=== PATIENT | female | born 2000 | race Caucasian/White ===

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

== ENCOUNTER → 2023-02-07 16:10 | Outpatient (CLI) | payer OTHER, SELFPAY ==
[2023-02-07 16:27] LABS: Appearance Urine UA CLEAR; Bilirubin Urine UA NEGATIVE (NEGATIVE); Color Urine UA YELLOW; Glucose Urine UA NEGATIVE (Negative); Ketones Urine UA NEGATIVE (NEGATIVE); Leukocyte Esterase Urine UA TRACE (NEGATIVE); Nitrite Urine UA NEGATIVE (Negative); Occult Blood Urine UA NEGATIVE (Negative); Protein Urine UA NEGATIVE (Negative); Urobilinogen Urine UA 0.2 E.U./dL (0.2)
[2023-02-07 16:41] LABS: pH Urine UA 6.5 (4.5-8.0)
[2023-02-07 16:44] LABS: Bacteria Urine Few (2-10); Culture Indicated Urine Specimen Cultured; RBC Urine 0-1/HPF (0-5/HPF); Squamous Epithelial Cell Urine 1-5 /HPF (0-5/HPF); WBC Urine 1-5/HPF (0-5/HPF)
[2023-02-07 17:55] LABS: Urine N gonorrhoeae NOT DETECTED
[2023-02-07 18:07] LABS: Urine Chlamydia NOT DETECTED
== END ==
PROVIDERS: PCP Family Medicine; Referring Provider Family Medicine; Visit Provider Family Medicine
DX: N39.0 Urinary tract infection, site not specified (principal); Z11.3 Encounter for screening for infections with a predominantly sexual mode of transmission
CPT/HCPCS: 81001; 87086; 87491; 87591

== ENCOUNTER 2023-08-10 09:09 | Emergency (ER) | payer OTHER, SELFPAY ==
[2023-08-10 09:12] VITALS: BP 116/70; PULSE 74; RESP 14; TEMP 36.4; O2SAT 100; BMI 21.0
--- NOTE | 2023-08-10 09:16 | PC.NURSE ---
Pt was donating plasma yesterday,she was moving her arm while donating and is concerned because she is having left arm pain now. Increases with any movement.
--- NOTE | 2023-08-10 09:31 | ED_ITS ---
HPI - Extremity Problem General Chief complaint: Extremity Injury, Upper Stated complaint: went to donate plasma was bending arm with needle Time Seen by Provider: 08/10/23 09:22 Source: patient Mode of arrival: Ambulatory History of Present Illness HPI Narrative: Patient complains of left upper arm pain. Patient donated plasma yesterday. Since then has had pain at the IV access site as well as upper arm pain. No history DVT or SVT. No shortness of breath. No fever chills. Related Data Home Medications Medication Instructions Recorded Confirmed No Known Home Medications 08/10/20 04/10/23 Allergies Allergy/AdvReac Type Severity Reaction Status Date / Time lactose AdvReac Mild Constipatio Verified 08/10/23 09:12 n Review of Systems Review of Systems Narrative: GENERAL: negative chills, fatigue, malaise, fever, sweats. HEENT: negative sinus pain, ear pain, sore throat RESPIRATORY: negative dyspnea, cough CARDIOVASCULAR: negative chest pain, palpitations GASTROINTESTINAL: negative nausea, vomiting, abdominal pain : negative dysuria, frequency, hematuria MUSCULOSKELETAL: Positive muscle or bony pain SKIN: negative rash, skin lesions NEUROLOGIC: negative weakness, numbness ROS Unobtainable: All systems reviewed & are unremarkable except as noted in HPI and below Patient History Medical History EDS (Oumar-Danlos syndrome) Social History Smoking Status: Unknown if ever smoked alcohol intake: never substance use type: marijuana (~1g per day for bowel issues ) Smoking Status: Unknown if ever smoked alcohol intake frequency: a few times a month Substance Use Type: marijuana Exam Narrative Exam Narrative: GENERAL: in no distress, not toxic not dyspneic HEAD: Normocephalic. EYES: Pupils equal round NECK: Trachea midline. EXTREMITIES: No gross deformities. IV access site noted on left AC. It is clean and dry intact. No palpable abscess or induration. No palpable cords in the upper extremity. And warm soft montes-pink strong reconditioning associate and radial pulse with light touch intact to fingers and thumb with strong reconditioning associate. Patient able to bend at the elbow. And fully extend. Able to supinate and pronate as well. NEURO: AOx4. SKIN: Warm and dry PSYCH: Not anxious, is cooperative Initial Vital Signs Initial Vital Signs: Vital Signs Temperature 97.6 F 08/10/23 09:12 Pulse Rate 74 08/10/23 09:12 Respiratory Rate 14 08/10/23 09:12 Blood Pressure 116/70 08/10/23 09:12 Pulse Oximetry 100 08/10/23 09:12 Oxygen Delivery Method Room Air 08/10/23 09:12 Course Orders Ordered: ED Orders 08/10/23 09:29 US periph venous up extrem lt Stat Vital Signs Vital signs: Vital Signs - 8 hr 08/10/23 09:12 08/10/23 10:44 08/10/23 10:44 Temperature 97.6 F Pulse Rate 74 73 Respiratory Rate 14 Blood Pressure 116/70 125/64 Pulse Oximetry 100 100 Oxygen Delivery Method Room Air 08/10/23 11:00 08/10/23 11:00 Temperature Pulse Rate 70 Respiratory Rate Blood Pressure 111/69 Pulse Oximetry 99 Oxygen Delivery Method MDM - Extremity (Nontraumatic) Imaging Data US - DVT: Radiologist's Impression: [address] [address] Ultrasound Report Signed Patient: Marlin Bowden MR#: [id number] : 2000 Acct:[id number] Age/Sex: 23 / F Date of Service: 08/10/23 Loc: ED Accession Number: [id number] Procedure: perip venous up extrem lt Ordering Provider: Humberto Wang MD PROCEDURE: PERIP VENOUS UP EXTREM LT INDICATIONS: Left arm pain and swelling TECHNIQUE: Real-time imaging, as well as color and pulse Doppler interrogation, was performed of the upper extremity deep veins from the inferior neck to the antecubital fossa. COMPARISON: None. FINDINGS: The internal jugular vein, visualized portions of the subclavian vein, axillary, and brachial veins are free of intraluminal thrombus. Where physically possible, the veins are normally compressible. Color and pulse Doppler demonstrate normal intraluminal flow, with expected phasicity and pulsatility. Additional scanning of the cephalic and basilic veins of the superficial system demonstrates normal compressibility, without thrombus. IMPRESSION: No findings of upper extremity deep venous thrombosis can be seen. Dictated by: Duran Alejandro M.D. on 08/10/2023 at 9:34 Approved by: Duran Alejandro M.D. on 08/10/2023 at 9:34 MDM Narrative Medical decision making narrative: Patient complains of left upper arm pain. Patient donated plasma yesterday. Since then has had pain at the IV access site as well as upper arm pain. No history DVT or SVT. No shortness of breath. No fever chills. After history and exam ultrasound left upper MDM CC: Left arm pain Complicating co-morbidities: Recent plasma donation yesterday Data collected from: Patient Medical records reviewed: No recent visit for this complaint Differential considered: Includes but not limited to SVT DVT contusion phlebitis Exam documented above, pertinent findings include: No palpable cord however, mild tenderness to the IV access site Lab Test results independently reviewed as above. Pertinent findings: None indicated at this time Imaging studies independently reviewed: Venous ultrasound left upper extremity no DVT Consultations: None indicated Treatments: None indicated this time Re-evaluations: 11:11 a.m.. Review results with patient. Exam is reassuring as well as imaging. No blood work indicated at this time. Exam is reassuring. No signs of infection/cellulitis. Return precautions reviewed with patient. Nontoxic discharge. Reviewed with patient, perhaps injury during IV insertion yesterday could be muscular pain. Discussion: Appropriate for discharge home exam is reassuring. No blurred indicated. No signs of infection. Nontoxic. Imaging is reassuring. Return precautions reviewed. Patient desires discharge home. Diagnosis: Arm pain Discharge Plan Departure Patient Disposition: Home Clinical Impression: Arm pain, left Instructions: DI for Arm Pain Activity Restrictions/Additional Instructions: See family doctor next week for re-evaluation. Your exam today and imaging studies are reassuring. No blood clot seen in your arm. No blood work is indicated at this time. There is no signs of infection. Perhaps during IV insertion yesterday injury may have been muscular trauma. Continue ibuprofen or Tylenol for pain. May use warm packs to the area 20 minutes at a time as needed for pain. Prescriptions: No Action No Known Home Medications Referrals: Chirag Gupta DO [Primary Care Provider] - Stand Alone Forms: Patient Portal/API, Work Release Note
[2023-08-10 10:44] VITALS: BP 125/64; PULSE 73; O2SAT 100
[2023-08-10 11:00] VITALS: BP 111/69; PULSE 70; O2SAT 99
== END 2023-08-10 11:22 | disposition home or self-care (01) ==
PROVIDERS: Emergency Provider Emergency Medicine; PCP Family Medicine
DX: M79.602 Pain in left arm (principal)
CPT/HCPCS: 93971; 99281; 99283

== ENCOUNTER → 2023-09-21 09:01 | Outpatient (CLI) | payer OTHER, SELFPAY ==
--- NOTE | 2023-09-21 09:03 | DI.US.S_ITS ---
PROCEDURE: US PELVIC COMPLETE INDICATIONS: Dysmenorrhea/pelvic pain TECHNIQUE: Real-time scanning was performed of the pelvic organs, with image documentation. Additional endovaginal scanning was necessary due to incomplete visualization of the adnexal and endometrial structures by transabdominal scanning. COMPARISON: None. FINDINGS: Uterus: Uterus is anteverted and normal in size at 7.8 x 5.4 x 3.5 cm. The myometrium is homogeneous. The endometrium measures 14 mm combined thickness. Bicornuate uterus. No fibroids seen. Ovaries: The right ovary measures 2.9 x 2.4 x 1.6 cm, with a calculated ovarian volume of 6 cc. The left ovary measures 4.4 x 3 x 1.9 cm, with a calculated ovarian volume of 13 cc. Left ovarian hemorrhagic cyst measuring 2.2 x 1.9 x 1.4 cm. Less than 12 follicles can be seen in each ovary. Other: No pathologic free abdominal or pelvic fluid. IMPRESSION: 1. Bicornuate uterus. Endometrium measures 14 mm. 2. Small left ovarian hemorrhagic cyst measuring 2.2 cm. We strive to produce accurate, complete, and clear reports of imaging services. To assist us in improving patient care, this report was composed using standard report templates and voice recognition software. Therefore, it may contain abnormal punctuation, insertions and/or omissions. Occasional wrong-word or sound-alike substitutions may occur. Though we review the report and make efforts to correct it, we do recommend that the report be read carefully in proper context to recognize any text inaccuracies. Dictated by: Eduardo Avilez M.D. on 09/21/2023 at 11:19 Approved by: Eduardo Avilez M.D. on 09/21/2023 at 11:24
== END ==
LOC: US 09:02
PROVIDERS: PCP Family Medicine; Referring Provider Obstetrics & Gynecology; Visit Provider Obstetrics & Gynecology
DX: N94.6 Dysmenorrhea, unspecified (principal); Q51.3 Bicornate uterus; N83.202 Unspecified ovarian cyst, left side
CPT/HCPCS: 76830; 76856

== ENCOUNTER → 2023-10-17 09:49 | Outpatient (CLI) | payer OTHER, SELFPAY ==
[2023-10-19 16:38] LABS: Rubella Antibody IgG > 350.0 IU/mL (>15)
== END ==
LOC: LAB 09:50
PROVIDERS: Family Provider Family Medicine; PCP Family Medicine; Referring Provider Family Medicine; Visit Provider Family Medicine
DX: Z13.9 Encounter for screening, unspecified (principal)
CPT/HCPCS: 36415; 86735; 86762; 86765

== ENCOUNTER 2023-11-30 08:15 | Outpatient (RCR) | payer OTHER, SELFPAY ==
--- NOTE | 2023-10-10 09:38 | PT.OIE ---
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) Syncope and collapse (10/10/23) Strain of muscle, fascia and tendon of other parts of biceps, left arm, subsequent encounter (10/10/23) Strain of unspecified muscle, fascia and tendon at shoulder and upper arm level, left arm, subsequent encounter (10/10/23) Past Medical History (Last Reviewed 09/04/23 @ 16:21 by Chirag Gupta DO) EDS (Oumar-Danlos syndrome) Left shoulder strain Syncope Visit Care Team Role Provider Type Chirag Gupta DO Attending Provider Physician Family Provider Primary Care Provider Referring Provider Specialty: [facility] Practice Address: [address] [place] [address], [facility] Email: [email or web address] Physical Therapy Initial Evaluation PT-OP-A Visit Information Start: 10/09/23 16:21 Freq: Status: Active Protocol: Document 10/10/23 08:14 SAK (Rec: 10/10/23 09:37 SAK [id number]) Out-Patient Physical Therapy Visit Information Visit Information Visit Type Initial Evaluation Visit Start Time 08:14 Visit Stop Time 09:01 Visit Number 1 Evaluation Information Evaluation Date 10/10/23 Precautions Precautions Ehler's Danlo PT-OP-B Current Condition Start: 10/09/23 16:21 Freq: Status: Active Protocol: Document 10/10/23 08:14 SAK (Rec: 10/10/23 09:37 SAK [id number]) Current Condition History of Current Condition Onset Date 2 months Current Complaints left UE pain History of Current Condition Onset of pain injury August 09; first time donating plasma. Was pumping her hand during extraction while needle in, patient passed out and reports she was shaking and convulsing, bent her elbow while equipment in her arm, bent arm at least 3x. Had bruising initially, unable to fully extend. 1st month practically unusable. Some improvement but persists. Feels continues to reinjure it . 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 Interrupts sleep. Occasional numbness left hand. Patient is right handed. On feet 8 hrs per day at work, has to lift at least 20 lbs frequently. Otherwise for exercise goes running and hiking; now jogging and walking, fearful of falling and further hurting arm. Bending elbow relieving, extending is stretching pain, tender to touch. Prior Treatments and Tests ultrasound; no clot. Using heat daily and reports hot water feels really good. Future Testing and Treatments Planned Nothing planned further. Potential for being put on light duty. Treatment Goals Patient/Caregiver Goals Decrease pain, regain full active use of her left UE. Prior Functional Status Baseline Function- ADL's Independent Baseline Function- Work/School no limitations Baseline Function- Recreation/Hobbies running, hiking Current Functional Impairments (Reported) Functional Limitations- ADL's painful, uses mostly right UE Functional Limitations- Work/School unable to work Functional Limitations- Recreation/ not running or hiking Hobbies currently Personal Factors Other Personal Factors That May Effect Rangel's Danlo Therapy/Recovery PT-OP-C Subjective Start: 10/09/23 16:21 Freq: Status: Active Protocol: Document 10/10/23 08:14 [facility] (Rec: 10/10/23 09:37 [facility] [id number]) Patient Questionnaires Quick Dash- Upper Extremity Quick Dash UE Score 45 OP-PT Pain Assessment Pain Assessment Grid Paper Pain Assessment Grid Completed Yes Location left UE Pain Location Details see pain chart Intensity 7 Description Aching,Chronic,Pressure, Stabbing,Tender,Tightness Frequency Frequent Pain Alleviating Factors Heat,Inactivity Home Pain Medication Use Pain Medications Used No Pain Behaviors Pain Behaviors Facial Grimacing,Guarding, Wincing PT-OP-F Manual Assessment Start: 10/09/23 16:21 Freq: Status: Active Protocol: Document 10/10/23 08:14 [facility] (Rec: 10/10/23 09:37 [facility] [id number]) Manual Assessments Soft Tissue Assessment Soft Tissue Mobility Assessment Increased soft tissue tension biceps, brachialis, brachioradialis. Joint Mobility Assessment Joint Mobility Assessment hypermobility due to Ehler's PT-OP-H Neuro Start: 10/09/23 16:21 Freq: Status: Active Protocol: Document 10/10/23 08:14 [facility] (Rec: 10/10/23 09:37 [facility] [id number]) Sensation Evaluation Gross Sensation Gross Sensation Left UE Impaired Sensation Description Paresthesia,Numbness PT-OP-J Posture/Palpation/Skin Start: 10/09/23 16:21 Freq: Status: Active Protocol: Document 10/10/23 08:14 SAK (Rec: 10/10/23 09:37 [facility] [id number]) Palpation Assessment Location left UE Palpation Findings Soft Tissue Tightness,Muscle Guarding Palpation Details no increased warmth or redness PT-OP-K Range of Motion Start: 10/09/23 16:21 Freq: Status: Active Protocol: Document 10/10/23 08:14 SAK (Rec: 10/10/23 09:37 [facility] [id number]) Cervical Spine Range of Motion Cervical Spine Active Comments WFL Shoulder Goniometric Range of Motion Shoulder Left Active Shoulder ROM WFL Yes Comments except IR T10 vs T3 right Right Active Shoulder ROM WFL Yes Shoulder ROM Limitations Shoulder ROM Limitations Soft Tissue Tightness,Pain Elbow/Forearm Range of Motion Elbow/Forearm Left Active Elbow/Forearm ROM WFL Yes Comments flexion pain relieving extension tight pain Right Elbow/Forearm ROM WFL Yes Elbow/Forearm ROM Limitations Elbow/Forearm ROM Limitations Pain Wrist Goniometric Range of Motion Wrist Left Wrist ROM WFL Yes Right Wrist ROM WFL Yes PT-OP-M Strength Start: 10/09/23 16:21 Freq: Status: Active Protocol: Document 10/10/23 08:14 SAK (Rec: 10/10/23 09:37 [facility] [id number]) Shoulder Strength Shoulder Manual Muscle Testing Left Flexion 4- Good- Extension 4- Good- Abduction (C5) 4- Good- External Rotation 4- Good- Internal Rotation 4- Good- Right Flexion 5 Normal Extension 5 Normal Abduction (C5) 5 Normal Adduction 5 Normal External Rotation 5 Normal Internal Rotation 5 Normal Horizontal Abduction 5 Normal Horizontal Adduction 5 Normal Elbow/Forearm Strength Elbow and Forearm Manual Muscle Testing Left Flexion (C6) 3+ Fair+ Extension (C7) 4- Good- Pronation 3+ Fair+ Supination 3+ Fair+ Comments painful all motions, worst is flexion. Right Flexion (C6) 5 Normal Extension (C7) 5 Normal Wrist Strength Wrist Manual Muscle Testing Left Flexion (C7) 3+ Fair+ Extension (C6) 4 Good Comments painful flexion Right Flexion (C7) 5 Normal Extension (C6) 5 Normal PT-OP-Q Treatments Start: 10/09/23 16:21 Freq: Status: Active Protocol: Document 10/10/23 08:14 SAK (Rec: 10/10/23 09:37 [facility] [id number]) Manual Therapy Treatment Soft Tissue Mobilization desensitization Body Location left UE Intensity/Depth Superficial Body Position Hooklying Comments patient instruction to do at home Taping left biceps Treatment Focus inhib Type of Tape Kinesio Tape Skin Inspection intact Comments paper off tension from insertion distal elbow along muscle proximally , elbow flexed approx 30 deg during application Self-Care/Home Management Treatment Education Patient Education Home Exercise Program,Pain Management Other Education desensitization of left UE PT-OP-R Modalities Start: 10/09/23 16:21 Freq: Status: Active Protocol: Document 10/10/23 08:14 [facility] (Rec: 10/10/23 09:37 [facility] [id number]) Infrared Treatment Treatment left elbow Body Position Hooklying Continuous/Pulsed Continuous Program or Protocal chronic pain and stiffness Comments 58 sec each of 7 locations distal and prox elbow and biceps muscle belly PT-OP-T Assessment and Plan Start: 10/09/23 16:21 Freq: Status: Active Protocol: Document 10/10/23 08:14 [facility] (Rec: 10/10/23 09:37 [facility] [id number]) Physical Therapy Assessment Rehab Potential Rehabilitation Potential Good Evaluation Complexity Number of Personal Factors/Comorbidities 1-2 Number of Body Systems Impaired 3 Clinical Presentation at Evaluation Evolving Impairments Impairments Activity Tolerance Goals Four Impairment palpable tightness and hypersensitivity left biceps Short Term Goal (STG) Desensitize left UE to allow for moderate soft tissue mobilization to return musculature to normal tone and promote healing STG Duration 11/23/23 Group Home Goal (LTG) Normalize muscle tone and eliminate hypersensitivity left UE LTG Duration 01/09/24 Three Impairment pain interrups patient sleep Group Home Goal (LTG) Patient able to return to normal sleep pattern without being woken due to sleep LTG Duration 01/09/24 Two Impairment weakness left UE Short Term Goal (STG) Patient to be instructed in individualized and progressive HEP for purposes of strengthening left UE STG Duration 11/23/23 Spool Cleaner Goal (LTG) Patient to be independent and compliant with HEP and demonstrate improvement in strength left UE to at least 4 +/5 all muscle groups to allow her to return to prior functional activities including work. LTG Duration 01/09/24 One Impairment activity intolerance Impairment Quickdash UE disability index 45% Short Term Goal (STG) Decrease Quickdash to no greater than 20% STG Duration 11/23/23 Group Home Goal (LTG) Decrease Quickdash score to no greater than 10% as measure of improved function and activity tolerance left UE LTG Duration 01/09/24 Assessment Summary Assessment Patient presents to PT with function-limiting pain, paresthesia, altered muscle tension, and weakness left UE after injury sustained while donating plasma. Patient currently unable to work and tolerates minimal touch or pressure to her left UE. She has significant weakness in her left UE, occasional numbness into left UE, and palpable increase in muscle tension all indicative of soft tissue injury to biceps and brachialis as well as nerve irritation. Feel she will benefit from PT to decrease her pain and soft tissue tightness and hypersensitivity , and improve her strength and function to allow her to return to all usual activities including a very physically demanding job. Patient is highly motivated. POC was discussed and patient was in agreement. Physical Therapy Plan Frequency and Duration Frequency of Treatment 2x/Week Duration of treatment (weeks) 8 Plan of Care Start Date 10/10/23 Plan of Care End Date 01/09/24 Therapeutic Interventions Therapeutic Interventions Home Exercise Program,Manual Therapy,Patient/Caregiver Education,Self-Care/Home Management,Soft Tissue Mobilization,Taping, Therapeutic Activities, Therapeutic Exercises Modalities Cold Pack/Ice Massage,Electric Stimulation,Hot Packs, Infrared Therapy,Iontophoresis ,Ultrasound Next Visit Focus/Plan Next Note Type Treatment Note Next Visit Plan ASsess response to first PT treatment of cold laser and kinesiotape. Continue cold laser, provide desensitization and soft tissue mobilization, instruct in HEP. consider iontophoresis.
--- NOTE | 2023-10-10 09:38 | PT.OPPOC ---
Physical, Occupational & Speech Therapy At 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) Syncope and collapse (10/10/23) Strain of muscle, fascia and tendon of other parts of biceps, left arm, subsequent encounter (10/10/23) Strain of unspecified muscle, fascia and tendon at shoulder and upper arm level, left arm, subsequent encounter (10/10/23) Visit Care Team Role Provider Type Chirag Gupta DO Attending Provider Physician Family Provider Primary Care Provider Referring Provider Specialty: Family Practice Address: [address] [place] [address] Email: [email or web address] PT-OP-T Assessment and Plan Start: 10/09/23 16:21 Freq: Status: Active Protocol: Document 10/10/23 08:14 SAK (Rec: 10/10/23 09:37 SAK [id number]) Physical Therapy Assessment Rehab Potential Rehabilitation Potential Good Evaluation Complexity Number of Personal Factors/Comorbidities 1-2 Number of Body Systems Impaired 3 Clinical Presentation at Evaluation Evolving Impairments Impairments Activity Tolerance Goals Four Impairment palpable tightness and hypersensitivity left biceps Short Term Goal (STG) Desensitize left UE to allow for moderate soft tissue mobilization to return musculature to normal tone and promote healing STG Duration 11/23/23 Solution Consultant Goal (LTG) Normalize muscle tone and eliminate hypersensitivity left UE LTG Duration 01/09/24 Three Impairment pain interrups patient sleep Jail Goal (LTG) Patient able to return to normal sleep pattern without being woken due to sleep LTG Duration 01/09/24 Two Impairment weakness left UE Short Term Goal (STG) Patient to be instructed in individualized and progressive HEP for purposes of strengthening left UE STG Duration 11/23/23 Solution Consultant Goal (LTG) Patient to be independent and compliant with HEP and demonstrate improvement in strength left UE to at least 4 +/5 all muscle groups to allow her to return to prior functional activities including work. LTG Duration 01/09/24 One Impairment activity intolerance Impairment Quickdash UE disability index 45% Short Term Goal (STG) Decrease Quickdash to no greater than 20% STG Duration 11/23/23 Jail Goal (LTG) Decrease Quickdash score to no greater than 10% as measure of improved function and activity tolerance left UE LTG Duration 01/09/24 Assessment Summary Assessment Patient presents to PT with function-limiting pain, paresthesia, altered muscle tension, and weakness left UE after injury sustained while donating plasma. Patient currently unable to work and tolerates minimal touch or pressure to her left UE. She has significant weakness in her left UE, occasional numbness into left UE, and palpable increase in muscle tension all indicative of soft tissue injury to biceps and brachialis as well as nerve irritation. Feel she will benefit from PT to decrease her pain and soft tissue tightness and hypersensitivity , and improve her strength and function to allow her to return to all usual activities including a very physically demanding job. Patient is highly motivated. POC was discussed and patient was in agreement. Physical Therapy Plan Frequency and Duration Frequency of Treatment 2x/Week Duration of treatment (weeks) 8 Plan of Care Start Date 10/10/23 Plan of Care End Date 01/09/24 Therapeutic Interventions Therapeutic Interventions Home Exercise Program,Manual Therapy,Patient/Caregiver Education,Self-Care/Home Management,Soft Tissue Mobilization,Taping, Therapeutic Activities, Therapeutic Exercises Modalities Cold Pack/Ice Massage,Electric Stimulation,Hot Packs, Infrared Therapy,Iontophoresis ,Ultrasound Next Visit Focus/Plan Next Note Type Treatment Note Next Visit Plan ASsess response to first PT treatment of cold laser and kinesiotape. Continue cold laser, provide desensitization and soft tissue mobilization, instruct in HEP. consider iontophoresis. Plan of Care Dates Plan of Care Start Date 10/10/23 Plan of Care End Date 01/09/24 Electronically Signed by: Ning Gorman, PT 10/10/23 0938 If you are in agreement with this Plan of Care, please return a signed and dated copy. I have reviewed this Plan of Care and certify that the skilled therapy services above are required to meet the patient?s needs. Physician Signature Date Printed Name and Credentials Clinical Instructor Signature Printed Name and Credentials
--- NOTE | 2023-10-11 10:52 | PT.OTN ---
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) Syncope and collapse (10/11/23) Strain of muscle, fascia and tendon of other parts of biceps, left arm, subsequent encounter (10/11/23) Strain of unspecified muscle, fascia and tendon at shoulder and upper arm level, left arm, subsequent encounter (10/11/23) Physical Therapy Treatment Note PT-OP-A Visit Information Start: 10/09/23 16:21 Freq: Status: Active Protocol: Document 10/11/23 09:45 SAK (Rec: 10/11/23 10:52 SAK [id number]) Out-Patient Physical Therapy Visit Information Visit Information Visit Type Treatment Note Visit Start Time 09:45 Visit Stop Time 10:42 Visit Number 2 Evaluation Information Evaluation Date 10/10/23 Precautions Precautions Ehler's Danlo PT-OP-B Current Condition Start: 10/09/23 16:21 Freq: Status: Active Protocol: Document 10/11/23 09:45 SAK (Rec: 10/11/23 10:52 SAK [id number]) Current Condition History of Current Condition Onset Date 2 months Current Complaints left UE pain History of Current Condition Onset of pain injury August 09; first time donating plasma. Was pumping her hand during extraction while needle in, patient passed out and reports she was shaking and convulsing, bent her elbow while equipment in her arm, bent arm at least 3x. Had bruising initially, unable to fully extend. 1st month practically unusable. Some improvement but persists. Feels continues to reinjure it . 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 Interrupts sleep. Occasional numbness left hand. Patient is right handed. On feet 8 hrs per day at work, has to lift at least 20 lbs frequently. Otherwise for exercise goes running and hiking; now jogging and walking, fearful of falling and further hurting arm. Bending elbow relieving, extending is stretching pain, tender to touch. Prior Treatments and Tests ultrasound; no clot. Using heat daily and reports hot water feels really good. Future Testing and Treatments Planned Nothing planned further. Potential for being put on light duty. Treatment Goals Patient/Caregiver Goals Decrease pain, regain full active use of her left UE. PT-OP-C Subjective Start: 10/09/23 16:21 Freq: Status: Active Protocol: Document 10/11/23 09:45 SAK (Rec: 10/11/23 10:52 SAK [id number]) OP-PT Subjective Patient Comments Patient Comments A bit sore, sensitive to having the tape touch. PT-OP-F Manual Assessment Start: 10/09/23 16:21 Freq: Status: Active Protocol: Document 10/10/23 08:14 SAK (Rec: 10/10/23 09:37 [facility] [id number]) Manual Assessments Soft Tissue Assessment Soft Tissue Mobility Assessment Increased soft tissue tension biceps, brachialis, brachioradialis. Joint Mobility Assessment Joint Mobility Assessment hypermobility due to Ehler's PT-OP-H Neuro Start: 10/09/23 16:21 Freq: Status: Active Protocol: Document 10/10/23 08:14 SAK (Rec: 10/10/23 09:37 [facility] [id number]) Sensation Evaluation Gross Sensation Gross Sensation Left UE Impaired Sensation Description Paresthesia,Numbness PT-OP-J Posture/Palpation/Skin Start: 10/09/23 16:21 Freq: Status: Active Protocol: Document 10/10/23 08:14 SAK (Rec: 10/10/23 09:37 [facility] [id number]) Palpation Assessment Location left UE Palpation Findings Soft Tissue Tightness,Muscle Guarding Palpation Details no increased warmth or redness PT-OP-K Range of Motion Start: 10/09/23 16:21 Freq: Status: Active Protocol: Document 10/10/23 08:14 SAK (Rec: 10/10/23 09:37 [facility] [id number]) Cervical Spine Range of Motion Cervical Spine Active Comments WFL Shoulder Goniometric Range of Motion Shoulder Left Active Shoulder ROM WFL Yes Comments except IR T10 vs T3 right Right Active Shoulder ROM WFL Yes Shoulder ROM Limitations Shoulder ROM Limitations Soft Tissue Tightness,Pain Elbow/Forearm Range of Motion Elbow/Forearm Left Active Elbow/Forearm ROM WFL Yes Comments flexion pain relieving extension tight pain Right Elbow/Forearm ROM WFL Yes Elbow/Forearm ROM Limitations Elbow/Forearm ROM Limitations Pain Wrist Goniometric Range of Motion Wrist Left Wrist ROM WFL Yes Right Wrist ROM WFL Yes PT-OP-M Strength Start: 10/09/23 16:21 Freq: Status: Active Protocol: Document 10/10/23 08:14 SAK (Rec: 10/10/23 09:37 [facility] [id number]) Shoulder Strength Shoulder Manual Muscle Testing Left Flexion 4- Good- Extension 4- Good- Abduction (C5) 4- Good- External Rotation 4- Good- Internal Rotation 4- Good- Right Flexion 5 Normal Extension 5 Normal Abduction (C5) 5 Normal Adduction 5 Normal External Rotation 5 Normal Internal Rotation 5 Normal Horizontal Abduction 5 Normal Horizontal Adduction 5 Normal Elbow/Forearm Strength Elbow and Forearm Manual Muscle Testing Left Flexion (C6) 3+ Fair+ Extension (C7) 4- Good- Pronation 3+ Fair+ Supination 3+ Fair+ Comments painful all motions, worst is flexion. Right Flexion (C6) 5 Normal Extension (C7) 5 Normal Wrist Strength Wrist Manual Muscle Testing Left Flexion (C7) 3+ Fair+ Extension (C6) 4 Good Comments painful flexion Right Flexion (C7) 5 Normal Extension (C6) 5 Normal PT-OP-Q Treatments Start: 10/09/23 16:21 Freq: Status: Active Protocol: Document 10/11/23 09:45 [facility] (Rec: 10/11/23 10:52 [facility] [id number]) Therapeutic Exercises Sitting Exercises overhead press Resistance 1# Reps/Minutes 10x bicep curl Resistance 1# Reps/Minutes 10x forearm pron/sup Resistance 1# dumbell Reps/Minutes 10x wrist flex Resistance 1# Reps/Minutes 10x wrist ext Resistance 1# Reps/Minutes 10x promotions manager Equipment Used Digiflex yellow, yellow putty Reps/Minutes 10x ea Manual Therapy Treatment Soft Tissue Mobilization desensitization Body Location left UE Intensity/Depth Superficial Body Position Hooklying Comments towel Taping left biceps Treatment Focus inhib Type of Tape Kinesio Tape Skin Inspection intact Comments paper off tension from insertion distal elbow along muscle proximally , elbow flexed approx 30 deg during application Self-Care/Home Management Treatment Education Patient Education Home Exercise Program,Pain Management Other Education issued written HO, yellow theraputty and L1 TB PT-OP-R Modalities Start: 10/09/23 16:21 Freq: Status: Active Protocol: Document 10/11/23 09:45 [facility] (Rec: 10/11/23 10:52 [facility] [id number]) Hot Pack/Cold Pack Treatment Hot Pack Location left biceps, elbow, forearm Patient Position Hooklying Patient Tolerance Good Comments liked heat and weight of pack Infrared Treatment Treatment left elbow Body Position Hooklying Continuous/Pulsed Continuous Program or Protocal chronic pain and stiffness Comments 58 sec each of 8 locations distal and prox elbow and biceps muscle belly PT-OP-T Assessment and Plan Start: 10/09/23 16:21 Freq: Status: Active Protocol: Document 10/11/23 09:45 [facility] (Rec: 10/11/23 10:52 [facility] [id number]) Physical Therapy Assessment Goals Four Impairment palpable tightness and hypersensitivity left biceps Short Term Goal (STG) Desensitize left UE to allow for moderate soft tissue mobilization to return musculature to normal tone and promote healing STG Duration 11/23/23 Adjunct Instructor Of [employer] Goal (LTG) Normalize muscle tone and eliminate hypersensitivity left UE LTG Duration 01/09/24 Three Impairment pain interrups patient sleep [facility] Goal (LTG) Patient able to return to normal sleep pattern without being woken due to sleep LTG Duration 01/09/24 Two Impairment weakness left UE Short Term Goal (STG) Patient to be instructed in individualized and progressive HEP for purposes of strengthening left UE STG Duration 11/23/23 [facility] Goal (LTG) Patient to be independent and compliant with HEP and demonstrate improvement in strength left UE to at least 4 +/5 all muscle groups to allow her to return to prior functional activities including work. LTG Duration 01/09/24 One Impairment activity intolerance Impairment Quickdash UE disability index 45% Short Term Goal (STG) Decrease Quickdash to no greater than 20% STG Duration 11/23/23 Adjunct Instructor [employer] Goal (LTG) Decrease Quickdash score to no greater than 10% as measure of improved function and activity tolerance left UE LTG Duration 01/09/24 Assessment Summary Assessment Good tolerance for ther ex with 1# resistance, bicep curl and wrist extension most difficult, densitization with towel performed by patient with PT direction entire left UE. Issued written HO for HEP with yellow theraputty and L1 THeraband with patient demonstrating good understanding. Physical Therapy Plan Frequency and Duration Frequency of Treatment 2x/Week Duration of treatment (weeks) 8 Plan of Care Start Date 10/10/23 Plan of Care End Date 01/09/24 Therapeutic Interventions Therapeutic Interventions Home Exercise Program,Manual Therapy,Patient/Caregiver Education,Self-Care/Home Management,Soft Tissue Mobilization,Taping, Therapeutic Activities, Therapeutic Exercises Modalities Cold Pack/Ice Massage,Electric Stimulation,Hot Packs, Infrared Therapy,Iontophoresis ,Ultrasound Next Visit Focus/Plan Next Note Type Treatment Note Next Visit Plan Continue cold laser, ther ex, densensitization, consider nerve glides and iontophoresis .
--- NOTE | 2023-10-17 09:44 | PT.OTN ---
Current Diagnoses Oumar-Danlos syndrome, unspecified (10/17/23) Syncope and collapse (10/17/23) Strain of muscle, fascia and tendon of other parts of biceps, left arm, subsequent encounter (10/17/23) Strain of unspecified muscle, fascia and tendon at shoulder and upper arm level, left arm, subsequent encounter (10/17/23) Physical Therapy Treatment Note PT-OP-A Visit Information Start: 10/09/23 16:21 Freq: Status: Active Protocol: Document 10/17/23 09:04 SP (Rec: 10/17/23 09:46 SP [id number]) Out-Patient Physical Therapy Visit Information Visit Information Visit Type Treatment Note Visit Start Time 09:04 Visit Stop Time 09:44 Visit Number 3 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 Was pumping her hand during extraction while needle in, patient passed out and reports she was shaking and convulsing, bent her elbow while equipment in her arm, bent arm at least 3x. Had bruising initially, unable to fully extend. 1st month practically unusable. Some improvement but persists. Feels continues to reinjure it . 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 Interrupts sleep. Occasional numbness left hand. Patient is right handed. On feet 8 hrs per day at work, has to lift at least 20 lbs frequently. Otherwise for exercise goes running and hiking; now jogging and walking, fearful of falling and further hurting arm. Bending elbow relieving, extending is stretching pain, tender to touch. Prior Treatments and Tests ultrasound; no clot. Using heat daily and reports hot water feels really good. Future Testing and Treatments Planned Nothing planned further. Potential for being put on light duty. Treatment Goals Patient/Caregiver Goals Decrease pain, regain full active use of her left UE. PT-OP-C Subjective Start: 10/09/23 16:21 Freq: Status: Active Protocol: Document 10/17/23 09:04 SP (Rec: 10/17/23 09:46 SP [id number]) OP-PT Subjective Patient Comments Patient Comments Pt reports Ktaping helped with decrease elbow hyperextension support but did slight irritate skin pulling it off and can still see slight stipply bruise tape design. Was hard to remove, wants more feedback easier after today removal. PT-OP-F Manual Assessment Start: 10/09/23 16:21 Freq: Status: Active Protocol: Document 10/10/23 08:14 SAK (Rec: 10/10/23 09:37 SAK [id number]) Manual Assessments Soft Tissue Assessment Soft Tissue Mobility Assessment Increased soft tissue tension biceps, brachialis, brachioradialis. Joint Mobility Assessment Joint Mobility Assessment hypermobility due to Ehler's PT-OP-H Neuro Start: 10/09/23 16:21 Freq: Status: Active Protocol: Document 10/10/23 08:14 SAK (Rec: 10/10/23 09:37 SAK [id number]) Sensation Evaluation Gross Sensation Gross Sensation Left UE Impaired Sensation Description Paresthesia,Numbness PT-OP-J Posture/Palpation/Skin Start: 10/09/23 16:21 Freq: Status: Active Protocol: Document 10/10/23 08:14 SAK (Rec: 10/10/23 09:37 SAK [id number]) Palpation Assessment Location left UE Palpation Findings Soft Tissue Tightness,Muscle Guarding Palpation Details no increased warmth or redness PT-OP-K Range of Motion Start: 10/09/23 16:21 Freq: Status: Active Protocol: Document 10/10/23 08:14 SAK (Rec: 10/10/23 09:37 SAK [id number]) Cervical Spine Range of Motion Cervical Spine Active Comments WFL Shoulder Goniometric Range of Motion Shoulder Left Active Shoulder ROM WFL Yes Comments except IR T10 vs T3 right Right Active Shoulder ROM WFL Yes Shoulder ROM Limitations Shoulder ROM Limitations Soft Tissue Tightness,Pain Elbow/Forearm Range of Motion Elbow/Forearm Left Active Elbow/Forearm ROM WFL Yes Comments flexion pain relieving extension tight pain Right Elbow/Forearm ROM WFL Yes Elbow/Forearm ROM Limitations Elbow/Forearm ROM Limitations Pain Wrist Goniometric Range of Motion Wrist Left Wrist ROM WFL Yes Right Wrist ROM WFL Yes PT-OP-M Strength Start: 10/09/23 16:21 Freq: Status: Active Protocol: Document 10/10/23 08:14 SAK (Rec: 10/10/23 09:37 SAK [id number]) Shoulder Strength Shoulder Manual Muscle Testing Left Flexion 4- Good- Extension 4- Good- Abduction (C5) 4- Good- External Rotation 4- Good- Internal Rotation 4- Good- Right Flexion 5 Normal Extension 5 Normal Abduction (C5) 5 Normal Adduction 5 Normal External Rotation 5 Normal Internal Rotation 5 Normal Horizontal Abduction 5 Normal Horizontal Adduction 5 Normal Elbow/Forearm Strength Elbow and Forearm Manual Muscle Testing Left Flexion (C6) 3+ Fair+ Extension (C7) 4- Good- Pronation 3+ Fair+ Supination 3+ Fair+ Comments painful all motions, worst is flexion. Right Flexion (C6) 5 Normal Extension (C7) 5 Normal Wrist Strength Wrist Manual Muscle Testing Left Flexion (C7) 3+ Fair+ Extension (C6) 4 Good Comments painful flexion Right Flexion (C7) 5 Normal Extension (C6) 5 Normal PT-OP-Q Treatments Start: 10/09/23 16:21 Freq: Status: Active Protocol: Document 10/17/23 09:04 SP (Rec: 10/17/23 09:46 SP [id number]) Therapeutic Exercises Sidelying Exercises FF, ABD, HABD Sidelying Exercise Name trialed proximal stab strengthening Side left Resistance FF, ABD, HABD- added HEP am warm up Equipment Used AROM> 1# DB Reps/Minutes 10 reps each direction Comments cued slow pacing, rhomboid/ parascap control Sitting Exercises overhead press Side left Resistance 1# DB Reps/Minutes 10x bicep curl Side left Resistance 1# DB Reps/Minutes 10x forearm pron/sup Resistance 1# dumbell Reps/Minutes 10x wrist flex Resistance 1# DB Reps/Minutes 10x wrist ext Resistance 1# DB Reps/Minutes 10x slat basket maker helper machine Equipment Used Digiflex yellow, yellow putty Reps/Minutes 10x ea Manual Therapy Treatment Taping left biceps Treatment Focus inhib Type of Tape Kinesio Tape Skin Inspection intact Comments paper off tension from insertion distal elbow along muscle proximally , elbow flexed approx 30 deg during application PT-OP-R Modalities Start: 10/09/23 16:21 Freq: Status: Active Protocol: Document 10/11/23 09:45 SAK (Rec: 10/11/23 10:52 SAK [id number]) Hot Pack/Cold Pack Treatment Hot Pack Location left biceps, elbow, forearm Patient Position Hooklying Patient Tolerance Good Comments liked heat and weight of pack Infrared Treatment Treatment left elbow Body Position Hooklying Continuous/Pulsed Continuous Program or Protocal chronic pain and stiffness Comments 58 sec each of 8 locations distal and prox elbow and biceps muscle belly PT-OP-T Assessment and Plan Start: 10/09/23 16:21 Freq: Status: Active Protocol: Document 10/17/23 09:04 SP (Rec: 10/17/23 09:46 SP [id number]) Physical Therapy Assessment Goals Four Impairment palpable tightness and hypersensitivity left biceps Short Term Goal (STG) Desensitize left UE to allow for moderate soft tissue mobilization to return musculature to normal tone and promote healing STG Duration 11/23/23 Care Home Goal (LTG) Normalize muscle tone and eliminate hypersensitivity left UE LTG Duration 01/09/24 Three Impairment pain interrups patient sleep [facility] Goal (LTG) Patient able to return to normal sleep pattern without being woken due to sleep LTG Duration 01/09/24 Two Impairment weakness left UE Short Term Goal (STG) Patient to be instructed in individualized and progressive HEP for purposes of strengthening left UE STG Duration 11/23/23 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 LTG Duration 01/09/24 One Impairment activity intolerance Impairment Quickdash UE disability index 45% Short Term Goal (STG) Decrease Quickdash to no greater than 20% STG Duration 11/23/23 [facility] Home Goal (LTG) Decrease Quickdash score to no greater than 10% as measure of improved function and activity tolerance left UE LTG Duration 01/09/24 Assessment Summary Assessment Pt responded well to resisted ther ex review, with slow pacing pnfree tiring. Initiated scapular ROM for early am mobility initial cue for slow pacing improved scapular stabilization with ability to add 1# DB for progression strengthening support for daily activities. Neck stretching assisted decrease tightness on L noticed during day. Provided HOs for assist set up and recall painfree range tolerant understanding. Ed for use of lubricant for Ktaping removal 2-4 day longest and allow skin breath, earlier if notices irritation. Verbalized understanding. Physical Therapy Plan Frequency and Duration Frequency of Treatment 2x/Week Duration of treatment (weeks) 8 Plan of Care Start Date 10/10/23 Plan of Care End Date 01/09/24 Therapeutic Interventions Therapeutic Interventions Home Exercise Program,Manual Therapy,Patient/Caregiver Education,Self-Care/Home Management,Soft Tissue Mobilization,Taping, Therapeutic Activities, Therapeutic Exercises Modalities Cold Pack/Ice Massage,Electric Stimulation,Hot Packs, Infrared Therapy,Iontophoresis ,Ultrasound Next Visit Focus/Plan Next Note Type Treatment Note Next Visit Plan Check added stretching, side ROM/resisted UE. Recheck Ktaping. POC: Continue cold laser, ther ex, densensitization, consider nerve glides and iontophoresis.
--- NOTE | 2023-10-20 08:29 | PT-OP ANOTE ---
Pt DNS for appt today. [employer] called and left message regarding, wanting to help progress with attendance. Reminded no more than 4 days for Ktape wearing for skin integrity safety. Reminded of next appt 10/24.
--- NOTE | 2023-10-25 16:40 | PT.OTN ---
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 [id number]) Out-Patient Physical Therapy Visit Information Visit Information Visit Type Treatment Note Visit Start Time 09:04 Visit Stop Time 09:44 Visit Number 4 Number of DIE STAMPING PRESS OPERATOR Visits 0 Evaluation Information Evaluation Date 10/10/23 Precautions Precautions Ehler's Danlo PT-OP-B Current Condition Start: 10/09/23 16:21 Freq: Status: Active Protocol: Document 10/25/23 11:22 [facility]AK (Rec: 10/25/23 12:[address] [facility] [id number]) Current Condition History of Current Condition Onset Date 2 months Current Complaints left UE pain History of Current Condition Onset of pain injury August 09; first time donating plasma. Was pumping her hand during extraction while needle in, patient passed out and reports she was shaking and convulsing, bent her elbow while equipment in her arm, bent arm at least 3x. Had bruising initially, unable to fully extend. 1st month practically unusable. Some improvement but persists. Feels continues to reinjure it . 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 Interrupts sleep. Occasional numbness left hand. Patient is right handed. On feet 8 hrs per day at work, has to lift at least 20 lbs frequently. Otherwise for exercise goes running and hiking; now jogging and walking, fearful of falling and further hurting arm. Bending elbow relieving, extending is stretching pain, tender to touch. Prior Treatments and Tests ultrasound; no clot. Using heat daily and reports hot water feels really good. Future Testing and Treatments Planned Nothing planned further. Potential for being put on light duty. Treatment Goals Patient/Caregiver Goals Decrease pain, regain full active use of her left UE. PT-OP-C Subjective Start: 10/09/23 16:21 Freq: Status: Active Protocol: Document 10/25/23 11:22 SAK (Rec: 10/25/23 12:13 [facility] [id number]) OP-PT Subjective Patient Comments Patient Comments Experiencing stiffness more than pain, mostly in shoulder. Doing HEP, helping. The skin irritation is worth it for the benefit of the KT tape . Pain decreased to 3-4/10. Likes laser. 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 Bustamante 11/01 at 4:00 (PT that same day 9:00 am; pt. requests communication to ) Patient Reported Progress Improving PT-OP-F Manual Assessment Start: 10/09/23 16:21 Freq: Status: Active Protocol: Document 10/10/23 08:14 [facility]AK (Rec: 10/10/23 09:[address] [facility] [id number]) Manual Assessments Soft Tissue Assessment Soft Tissue Mobility Assessment Increased soft tissue tension biceps, brachialis, brachioradialis. Joint Mobility Assessment Joint Mobility Assessment hypermobility due to Ehler's PT-OP-H Neuro Start: 10/09/23 16:21 Freq: Status: Active Protocol: Document 10/10/23 08:14 [facility]AK (Rec: 10/10/23 09:[address] [facility] [id number]) Sensation Evaluation Gross Sensation Gross Sensation Left UE Impaired Sensation Description Paresthesia,Numbness PT-OP-J Posture/Palpation/Skin Start: 10/09/23 16:21 Freq: Status: Active Protocol: Document 10/10/23 08:14 [facility]AK (Rec: 10/10/23 09:[address] [facility] [id number]) Palpation Assessment Location left UE Palpation Findings Soft Tissue Tightness,Muscle Guarding Palpation Details no increased warmth or redness PT-OP-K Range of Motion Start: 10/09/23 16:21 Freq: Status: Active Protocol: Document 10/10/23 08:14 [facility]AK (Rec: 10/10/23 09:[address] [facility] [id number]) Cervical Spine Range of Motion Cervical Spine Active Comments WFL Shoulder Goniometric Range of Motion Shoulder Left Active Shoulder ROM WFL Yes Comments except IR T10 vs T3 right Right Active Shoulder ROM WFL Yes Shoulder ROM Limitations Shoulder ROM Limitations Soft Tissue Tightness,Pain Elbow/Forearm Range of Motion Elbow/Forearm Left Active Elbow/Forearm ROM WFL Yes Comments flexion pain relieving extension tight pain Right Elbow/Forearm ROM WFL Yes Elbow/Forearm ROM Limitations Elbow/Forearm ROM Limitations Pain Wrist Goniometric Range of Motion Wrist Left Wrist ROM WFL Yes Right Wrist ROM WFL Yes PT-OP-M Strength Start: 10/09/23 16:21 Freq: Status: Active Protocol: Document 10/10/23 08:[address] [facility] (Rec: 10/10/23 09:[address] [facility] [id number]) Shoulder Strength Shoulder Manual Muscle Testing Left Flexion 4- Good- Extension 4- Good- Abduction (C5) 4- Good- External Rotation 4- Good- Internal Rotation 4- Good- Right Flexion 5 Normal Extension 5 Normal Abduction (C5) 5 Normal Adduction 5 Normal External Rotation 5 Normal Internal Rotation 5 Normal Horizontal Abduction 5 Normal Horizontal Adduction 5 Normal Elbow/Forearm Strength Elbow and Forearm Manual Muscle Testing Left Flexion (C6) 3+ Fair+ Extension (C7) 4- Good- Pronation 3+ Fair+ Supination 3+ Fair+ Comments painful all motions, worst is flexion. Right Flexion (C6) 5 Normal Extension (C7) 5 Normal Wrist Strength Wrist Manual Muscle Testing Left Flexion (C7) 3+ Fair+ Extension (C6) 4 Good Comments painful flexion Right Flexion (C7) 5 Normal Extension (C6) 5 Normal PT-OP-Q Treatments Start: 10/09/23 16:21 Freq: Status: Active Protocol: Document 10/25/23 11:[address] [facility] (Rec: 10/25/23 12:[address] [facility] [id number]) Therapeutic Exercises Supine Exercises serratus punch Equipment Used 2# Reps/Minutes 10x pec stretch Equipment Used foam roller, pillow under left UE Reps/Minutes 2x30 Sidelying Exercises FF, ABD, HABD Sidelying Exercise Name trialed proximal stab strengthening Side left Resistance FF, ABD, HABD Equipment Used AROM> 1# DB Reps/Minutes 10 reps each direction Comments cued slow pacing, rhomboid/ parascap control Sitting Exercises pec stretch Equipment Used yellow ball behind t/s pulleys Equipment Used yellow ball behind t/s Reps/Minutes 10x Manual Therapy Treatment Soft Tissue Mobilization periscap Mobilization Type Myofascial Release,Strumming, Sustained Pressure Intensity/Depth Moderate Body Position Sidelying Taping left shoulder Treatment Focus postural Type of Tape KT Skin Inspection intact Comments 2 I strips: T10 to anterior shoulder 50% tension, posterior to ant shoulder 50% tension left biceps Treatment Focus inhib Type of Tape Kinesio Tape Skin Inspection intact Comments paper off tension from insertion distal elbow along muscle proximally , elbow flexed approx 30 deg during application Self-Care/Home Management Treatment Education Other Education progress activities at home, progress resistance as tolerated, simulated work activities working toward ability to lift 20# which is usual at work. PT-OP-R Modalities Start: 10/09/23 16:21 Freq: Status: Active Protocol: Document 10/25/23 11:[address] [facility] (Rec: 10/25/23 12:[address] [facility] [id number]) Infrared Treatment Treatment left elbow Body Position Hooklying Continuous/Pulsed Continuous Program or Protocal chronic pain and stiffness Comments 58 sec each of 8 locations distal and prox elbow and biceps muscle belly PT-OP-T Assessment and Plan Start: 10/09/23 16:21 Freq: Status: Active Protocol: Document 10/25/23 11:[address] [facility] (Rec: 10/25/23 12:[address] [facility] [id number]) Physical Therapy Assessment Goals Four Impairment palpable tightness and hypersensitivity left biceps Short Term Goal (STG) Desensitize left UE to allow for moderate soft tissue mobilization to return musculature to normal tone and promote healing STG Duration 11/23/23 Assembler Fluorescent Lights Goal (LTG) Normalize muscle tone and eliminate hypersensitivity left UE LTG Duration 01/09/24 Three Impairment pain interrups patient sleep Assembler Fluorescent Lights Goal (LTG) Patient able to return to normal sleep pattern without being woken due to sleep LTG Duration 01/09/24 Two Impairment weakness left UE Short Term Goal (STG) Patient to be instructed in individualized and progressive HEP for purposes of strengthening left UE STG Duration 11/23/23 Assembler Fluorescent Lights Goal (LTG) Patient to be independent and compliant with HEP and demonstrate improvement in strength left UE to at least 4 +/5 all muscle groups to allow her to return to prior functional activities including work. LTG Duration 01/09/24 One Impairment activity intolerance Impairment Quickdash UE disability index 45% Short Term Goal (STG) Decrease Quickdash to no greater than 20% STG Duration 11/23/23 [facility] Goal (LTG) Decrease Quickdash score to no greater than 10% as measure of improved function and activity tolerance left UE LTG Duration 01/09/24 Progress Towards Goals Progress Towards Goals Progressing Toward Goals Assessment Summary Assessment Patient demonstrating good improvement, benefits from cold laser and KT tape, ther ex. Trial manual STM to periscap musculature with patient reporting improved mobility (best since injury) . Demonstrated good understanding of instruction to gradually increase resistance with ther ex and simulate work tasks to asses tolerance. Physical Therapy Plan Frequency and Duration Frequency of Treatment 2x/Week Duration of treatment (weeks) 8 Plan of Care Start Date 10/10/23 Plan of Care End Date 01/09/24 Therapeutic Interventions Therapeutic Interventions Home Exercise Program,Manual Therapy,Patient/Caregiver Education,Self-Care/Home Management,Soft Tissue Mobilization,Taping, Therapeutic Activities, Therapeutic Exercises Modalities Cold Pack/Ice Massage,Electric Stimulation,Hot Packs, Infrared Therapy,Iontophoresis ,Ultrasound Next Visit Focus/Plan Next Note Type Treatment Note Next Visit Plan Continue cold laser, KT tape, manual techniques as needd, progress therapeutic exercises including functional tasks of lifting.
--- NOTE | 2023-11-01 12:20 | PT.OTN ---
Current Diagnoses Oumar-Danlos syndrome, unspecified (11/01/23) Syncope and collapse (11/01/23) Strain of muscle, fascia and tendon of other parts of biceps, left arm, subsequent encounter (11/01/23) Strain of unspecified muscle, fascia and tendon at shoulder and upper arm level, left arm, subsequent encounter (11/01/23) Physical Therapy Treatment Note PT-OP-A Visit Information Start: 10/09/23 16:21 Freq: Status: Active Protocol: Document 11/01/23 09:03 [facility]AK (Rec: 11/01/23 09:48 [facility] [id number]) Out-Patient Physical Therapy Visit Information Visit Information Visit Type Treatment Note Visit Start Time 09:04 Visit Stop Time 09:44 Visit Number 5 Number of CREAM DUMPER Visits 0 Evaluation Information Evaluation Date 10/10/23 Precautions Precautions Ehler's Danlo PT-OP-B Current Condition Start: 10/09/23 16:21 Freq: Status: Active Protocol: Document 11/01/23 09:03 [facility]AK (Rec: 11/01/23 09:48 [facility] [id number]) Current Condition History of Current Condition Onset Date 2 months Current Complaints left UE pain History of Current Condition Onset of pain injury August 09; first time donating plasma. Was pumping her hand during extraction while needle in, patient passed out and reports she was shaking and convulsing, bent her elbow while equipment in her arm, bent arm at least 3x. Had bruising initially, unable to fully extend. 1st month practically unusable. Some improvement but persists. Feels continues to reinjure it . 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 Interrupts sleep. Occasional numbness left hand. Patient is right handed. On feet 8 hrs per day at work, has to lift at least 20 lbs frequently. Otherwise for exercise goes running and hiking; now jogging and walking, fearful of falling and further hurting arm. Bending elbow relieving, extending is stretching pain, tender to touch. Prior Treatments and Tests ultrasound; no clot. Using heat daily and reports hot water feels really good. Future Testing and Treatments Planned Nothing planned further. Potential for being put on light duty. Treatment Goals Patient/Caregiver Goals Decrease pain, regain full active use of her left UE. PT-OP-C Subjective Start: 10/09/23 16:21 Freq: Status: Active Protocol: Document 11/01/23 09:03 [facility]AK (Rec: 11/01/23 09:48 [facility] [id number]) OP-PT Subjective Patient Comments Patient Comments Back to work 11/05/23, half time . Sees her doctor tomorrow. Tape was helpful but doesn't feel the need for it today. Has been practicing with gradually lifting more weight simulating work-type activities. PT-OP-F Manual Assessment Start: 10/09/23 16:21 Freq: Status: Active Protocol: Document 10/10/23 08:14 [facility]AK (Rec: 10/10/23 09:37 [facility] [id number]) Manual Assessments Soft Tissue Assessment Soft Tissue Mobility Assessment Increased soft tissue tension biceps, brachialis, brachioradialis. Joint Mobility Assessment Joint Mobility Assessment hypermobility due to Ehler's PT-OP-H Neuro Start: 10/09/23 16:21 Freq: Status: Active Protocol: Document 10/10/23 08:14 [facility]AK (Rec: 10/10/23 09:37 [facility] [id number]) Sensation Evaluation Gross Sensation Gross Sensation Left UE Impaired Sensation Description Paresthesia,Numbness PT-OP-J Posture/Palpation/Skin Start: 10/09/23 16:21 Freq: Status: Active Protocol: Document 10/10/23 08:14 [facility]AK (Rec: 10/10/23 09:37 [facility] [id number]) Palpation Assessment Location left UE Palpation Findings Soft Tissue Tightness,Muscle Guarding Palpation Details no increased warmth or redness PT-OP-K Range of Motion Start: 10/09/23 16:21 Freq: Status: Active Protocol: Document 10/10/23 08:14 [facility] (Rec: 10/10/23 09:37 [facility] [id number]) Cervical Spine Range of Motion Cervical Spine Active Comments WFL Shoulder Goniometric Range of Motion Shoulder Left Active Shoulder ROM WFL Yes Comments except IR T10 vs T3 right Right Active Shoulder ROM WFL Yes Shoulder ROM Limitations Shoulder ROM Limitations Soft Tissue Tightness,Pain Elbow/Forearm Range of Motion Elbow/Forearm Left Active Elbow/Forearm ROM WFL Yes Comments flexion pain relieving extension tight pain Right Elbow/Forearm ROM WFL Yes Elbow/Forearm ROM Limitations Elbow/Forearm ROM Limitations Pain Wrist Goniometric Range of Motion Wrist Left Wrist ROM WFL Yes Right Wrist ROM WFL Yes PT-OP-M Strength Start: 10/09/23 16:21 Freq: Status: Active Protocol: Document 10/10/23 08:14 [facility] (Rec: 10/10/23 09:37 [facility] [id number]) Shoulder Strength Shoulder Manual Muscle Testing Left Flexion 4- Good- Extension 4- Good- Abduction (C5) 4- Good- External Rotation 4- Good- Internal Rotation 4- Good- Right Flexion 5 Normal Extension 5 Normal Abduction (C5) 5 Normal Adduction 5 Normal External Rotation 5 Normal Internal Rotation 5 Normal Horizontal Abduction 5 Normal Horizontal Adduction 5 Normal Elbow/Forearm Strength Elbow and Forearm Manual Muscle Testing Left Flexion (C6) 3+ Fair+ Extension (C7) 4- Good- Pronation 3+ Fair+ Supination 3+ Fair+ Comments painful all motions, worst is flexion. Right Flexion (C6) 5 Normal Extension (C7) 5 Normal Wrist Strength Wrist Manual Muscle Testing Left Flexion (C7) 3+ Fair+ Extension (C6) 4 Good Comments painful flexion Right Flexion (C7) 5 Normal Extension (C6) 5 Normal PT-OP-Q Treatments Start: 10/09/23 16:21 Freq: Status: Active Protocol: Document 11/01/23 09:03 [facility] (Rec: 11/01/23 09:48 [facility] [id number]) Therapeutic Exercises Prone Exercises T,I Reps/Minutes 10x Sitting Exercises pec stretch Equipment Used yellow ball behind t/s pulleys Equipment Used yellow ball behind t/s Reps/Minutes 10x Comments flexion and scaption forearm pron/sup Resistance 3# dumbell Reps/Minutes 10x wrist flex Resistance 2# DB Reps/Minutes 10x wrist ext Resistance 2# DB Reps/Minutes 10x ophthalmology technician Equipment Used orange putty Reps/Minutes 10x ea Standing Exercises overhead press Resistance 4# Reps/Minutes 10x upright row Resistance 4# Reps/Minutes 10x shld shrug Resistance 4# Reps/Minutes 10x lateral raise Resistance 4# Reps/Minutes 10x bicep curls Resistance 4# Reps/Minutes 10x Self-Care/Home Management Treatment Education Patient Education Body Mechanics,Home Exercise Program,Pain Management PT-OP-R Modalities Start: 10/09/23 16:21 Freq: Status: Active Protocol: Document 11/01/23 09:03 [facility] (Rec: 11/01/23 09:48 [facility] [id number]) Infrared Treatment Treatment left elbow Body Position Hooklying Continuous/Pulsed Continuous Program or Protocal chronic pain and stiffness Comments 58 sec each of 8 locations distal and prox elbow and biceps muscle belly PT-OP-T Assessment and Plan Start: 10/09/23 16:21 Freq: Status: Active Protocol: Document 11/01/23 09:03 [facility] (Rec: 11/01/23 09:48 [facility] [id number]) Physical Therapy Assessment Goals Four Impairment palpable tightness and hypersensitivity left biceps Short Term Goal (STG) Desensitize left UE to allow for moderate soft tissue mobilization to return musculature to normal tone and promote healing 11/01/23: goal mostly met, good progress STG Duration 11/23/23 Rate Clerk Goal (LTG) Normalize muscle tone and eliminate hypersensitivity left UE LTG Duration 01/09/24 Three Impairment pain interrups patient sleep Fpc Goal (LTG) Patient able to return to normal sleep pattern without being woken due to sleep 11/01/23: good progress with improved sleep LTG Duration 01/09/24 Two Impairment weakness left UE Short Term Goal (STG) Patient to be instructed in individualized and progressive HEP for purposes of strengthening left UE 11/01/23: goal met STG Duration goal met Fpc Goal (LTG) Patient to be independent and compliant with HEP and demonstrate improvement in strength left UE to at least 4 +/5 all muscle groups to allow her to return to prior functional activities including work. LTG Duration 01/09/24 One Impairment activity intolerance Impairment Quickdash UE disability index 45% Short Term Goal (STG) Decrease Quickdash to no greater than 20% 11/01/23: Decreased to 34% STG Duration 11/23/23 Rate Clerk Goal (LTG) Decrease Quickdash score to no greater than 10% as measure of improved function and activity tolerance left UE LTG Duration 01/09/24 Progress Towards Goals Progress Towards Goals Progressing Toward Goals Assessment Summary Assessment Pain dec to 1-2/10, some increase with increase in activity . Has benfited from kinesiotape but wanted to try without today. Good progress toward goals. Patient highly motivated and compliant to HEP . Due to high physical nature of her job feel that starting on light duty and/or short days initially to allow her to best tolerate her return to work. Physical Therapy Plan Frequency and Duration Frequency of Treatment 2x/Week Duration of treatment (weeks) 8 Plan of Care Start Date 10/10/23 Plan of Care End Date 01/09/24 Therapeutic Interventions Therapeutic Interventions Home Exercise Program,Manual Therapy,Patient/Caregiver Education,Self-Care/Home Management,Soft Tissue Mobilization,Taping, Therapeutic Activities, Therapeutic Exercises Modalities Cold Pack/Ice Massage,Electric Stimulation,Hot Packs, Infrared Therapy,Iontophoresis ,Ultrasound Next Visit Focus/Plan Next Note Type Treatment Note Next Visit Plan Continue cold laser, KT tape, manual techniques as needd, progress therapeutic exercises including functional tasks of lifting.
--- NOTE | 2023-11-01 12:20 | PT.OPPOC ---
Physical, Occupational & Speech Therapy At [facility] Current Diagnoses Oumar-Danlos syndrome, unspecified (11/01/23) Syncope and collapse (11/01/23) Strain of muscle, fascia and tendon of other parts of biceps, left arm, subsequent encounter (11/01/23) Strain of unspecified muscle, fascia and tendon at shoulder and upper arm level, left arm, subsequent encounter (11/01/23) Visit Care Team Role Provider Type Chirag Gupta DO Attending Provider Physician Family Provider Primary Care Provider Referring Provider Specialty: Family Practice Address: [address] [place] [address] Email: [email or web address] Of Care PT-OP-T Assessment and Plan Start: 10/09/23 16:21 Freq: Status: Active Protocol: Document 11/01/23 09:03 [facility] (Rec: 11/01/23 09:48 [facility] [id number]) Physical Therapy Assessment Goals Four Impairment palpable tightness and hypersensitivity left biceps Short Term Goal (STG) Desensitize left UE to allow for moderate soft tissue mobilization to return musculature to normal tone and promote healing 11/01/23: goal mostly met, good progress STG Duration 11/23/23 Film Drying Machine Operator Goal (LTG) Normalize muscle tone and eliminate hypersensitivity left UE LTG Duration 01/09/24 Three Impairment pain interrups patient sleep Film Drying Machine Operator Goal (LTG) Patient able to return to normal sleep pattern without being woken due to sleep 11/01/23: good progress with improved sleep LTG Duration 01/09/24 Two Impairment weakness left UE Short Term Goal (STG) Patient to be instructed in individualized and progressive HEP for purposes of strengthening left UE 11/01/23: goal met STG Duration goal met Film Drying Machine Operator Goal (LTG) Patient to be independent and compliant with HEP and demonstrate improvement in strength left UE to at least 4 +/5 all muscle groups to allow her to return to prior functional activities including work. LTG Duration 01/09/24 One Impairment activity intolerance Impairment Quickdash UE disability index 45% Short Term Goal (STG) Decrease Quickdash to no greater than 20% 11/01/23: Decreased to 34% STG Duration 11/23/23 Film Drying Machine Operator Goal (LTG) Decrease Quickdash score to no greater than 10% as measure of improved function and activity tolerance left UE LTG Duration 01/09/24 Progress Towards Goals Progress Towards Goals Progressing Toward Goals Assessment Summary Assessment Pain dec to 1-08/12, some increase with increase in activity . Has benfited from kinesiotape but wanted to try without today. Good progress toward goals. Patient highly motivated and compliant to HEP . Due to high physical nature of her job feel that starting on light duty and/or short days initially to allow her to best tolerate her return to work. Physical Therapy Plan Frequency and Duration Frequency of Treatment 2x/Week Duration of treatment (weeks) 8 Plan of Care Start Date 10/10/23 Plan of Care End Date 01/09/24 Therapeutic Interventions Therapeutic Interventions Home Exercise Program,Manual Therapy,Patient/Caregiver Education,Self-Care/Home Management,Soft Tissue Mobilization,Taping, Therapeutic Activities, Therapeutic Exercises Modalities Cold Pack/Ice Massage,Electric Stimulation,Hot Packs, Infrared Therapy,Iontophoresis ,Ultrasound Next Visit Focus/Plan Next Note Type Treatment Note Next Visit Plan Continue cold laser, KT tape, manual techniques as needd, progress therapeutic exercises including functional tasks of lifting. Plan of Care Dates Plan of Care Start Date 10/10/23 Plan of Care End Date 01/09/24 Electronically Signed by: Ning Gorman, PT 11/01/23 3056 If you are in agreement with this Plan of Care, please return a signed and dated copy. I have reviewed this Plan of Care and certify that the skilled therapy services above are required to meet the patient?s needs. Physician Signature Date Printed Name and Credentials Clinical Instructor Signature Printed Name and Credentials
--- NOTE | 2023-11-02 09:44 | PT.OTN ---
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) Syncope and collapse (11/02/23) Strain of muscle, fascia and tendon of other parts of biceps, left arm, subsequent encounter (11/02/23) Strain of unspecified muscle, fascia and tendon at shoulder and upper arm level, left arm, subsequent encounter (11/02/23) Physical Therapy Treatment Note PT-OP-A Visit Information Start: 10/09/23 16:21 Freq: Status: Active Protocol: Document 11/02/23 09:04 SAK (Rec: 11/02/23 09:37 [facility] [id number]) Out-Patient Physical Therapy Visit Information Visit Information Visit Type Treatment Note Visit Start Time 09:02 Visit Stop Time 09:59 Evaluation Information Evaluation Date 10/10/23 Precautions Precautions Ehler's Danlo PT-OP-B Current Condition Start: 10/09/23 16:21 Freq: Status: Active Protocol: Document 11/02/23 09:04 SAK (Rec: 11/02/23 09:37 SAK [id number]) Current Condition History of Current Condition Onset Date 2 months Current Complaints left UE pain History of Current Condition Onset of pain injury August 09; first time donating plasma. Was pumping her hand during extraction while needle in, patient passed out and reports she was shaking and convulsing, bent her elbow while equipment in her arm, bent arm at least 3x. Had bruising initially, unable to fully extend. 1st month practically unusable. Some improvement but persists. Feels continues to reinjure it . 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 Interrupts sleep. Occasional numbness left hand. Patient is right handed. On feet 8 hrs per day at work, has to lift at least 20 lbs frequently. Otherwise for exercise goes running and hiking; now jogging and walking, fearful of falling and further hurting arm. Bending elbow relieving, extending is stretching pain, tender to touch. Prior Treatments and Tests ultrasound; no clot. Using heat daily and reports hot water feels really good. Future Testing and Treatments Planned Nothing planned further. Potential for being put on light duty. Treatment Goals Patient/Caregiver Goals Decrease pain, regain full active use of her left UE. PT-OP-C Subjective Start: 10/09/23 16:21 Freq: Status: Active Protocol: Document 11/02/23 09:04 SAK (Rec: 11/02/23 09:37 [facility] [id number]) OP-PT Subjective Patient Comments Patient Comments Muscle soreness after yexterday PT but feels like I needed it. PT-OP-F Manual Assessment Start: 10/09/23 16:21 Freq: Status: Active Protocol: Document 10/10/23 08:14 SAK (Rec: 10/10/23 09:37 [facility] [id number]) Manual Assessments Soft Tissue Assessment Soft Tissue Mobility Assessment Increased soft tissue tension biceps, brachialis, brachioradialis. Joint Mobility Assessment Joint Mobility Assessment hypermobility due to Ehler's PT-OP-H Neuro Start: 10/09/23 16:21 Freq: Status: Active Protocol: Document 10/10/23 08:14 SAK (Rec: 10/10/23 09:37 [facility] [id number]) Sensation Evaluation Gross Sensation Gross Sensation Left UE Impaired Sensation Description Paresthesia,Numbness PT-OP-J Posture/Palpation/Skin Start: 10/09/23 16:21 Freq: Status: Active Protocol: Document 10/10/23 08:14 SAK (Rec: 10/10/23 09:37 [facility] [id number]) Palpation Assessment Location left UE Palpation Findings Soft Tissue Tightness,Muscle Guarding Palpation Details no increased warmth or redness PT-OP-K Range of Motion Start: 10/09/23 16:21 Freq: Status: Active Protocol: Document 10/10/23 08:14 SAK (Rec: 10/10/23 09:37 [facility] [id number]) Cervical Spine Range of Motion Cervical Spine Active Comments WFL Shoulder Goniometric Range of Motion Shoulder Left Active Shoulder ROM WFL Yes Comments except IR T10 vs T3 right Right Active Shoulder ROM WFL Yes Shoulder ROM Limitations Shoulder ROM Limitations Soft Tissue Tightness,Pain Elbow/Forearm Range of Motion Elbow/Forearm Left Active Elbow/Forearm ROM WFL Yes Comments flexion pain relieving extension tight pain Right Elbow/Forearm ROM WFL Yes Elbow/Forearm ROM Limitations Elbow/Forearm ROM Limitations Pain Wrist Goniometric Range of Motion Wrist Left Wrist ROM WFL Yes Right Wrist ROM WFL Yes PT-OP-M Strength Start: 10/09/23 16:21 Freq: Status: Active Protocol: Document 10/10/23 08:14 [facility] (Rec: 10/10/23 09:37 [facility] [id number]) Shoulder Strength Shoulder Manual Muscle Testing Left Flexion 4- Good- Extension 4- Good- Abduction (C5) 4- Good- External Rotation 4- Good- Internal Rotation 4- Good- Right Flexion 5 Normal Extension 5 Normal Abduction (C5) 5 Normal Adduction 5 Normal External Rotation 5 Normal Internal Rotation 5 Normal Horizontal Abduction 5 Normal Horizontal Adduction 5 Normal Elbow/Forearm Strength Elbow and Forearm Manual Muscle Testing Left Flexion (C6) 3+ Fair+ Extension (C7) 4- Good- Pronation 3+ Fair+ Supination 3+ Fair+ Comments painful all motions, worst is flexion. Right Flexion (C6) 5 Normal Extension (C7) 5 Normal Wrist Strength Wrist Manual Muscle Testing Left Flexion (C7) 3+ Fair+ Extension (C6) 4 Good Comments painful flexion Right Flexion (C7) 5 Normal Extension (C6) 5 Normal PT-OP-Q Treatments Start: 10/09/23 16:21 Freq: Status: Active Protocol: Document 11/02/23 09:04 [facility] (Rec: 11/02/23 09:37 [facility] [id number]) Therapeutic Exercises Standing Exercises bicep stretch Reps/Minutes 1x30 Comments holding onto bar behind wall push up Reps/Minutes 10x Manual Therapy Treatment Soft Tissue Mobilization left bicep Mobilization Type Myofascial Release,Strumming, Other Intensity/Depth Moderate Body Position Supine Comments pin and stretch periscap Mobilization Type Myofascial Release,Strumming, Sustained Pressure Intensity/Depth Moderate Body Position Sidelying Self-Care/Home Management Treatment Education Other Education self pin and stretch massage bicep PT-OP-R Modalities Start: 10/09/23 16:21 Freq: Status: Active Protocol: Document 11/02/23 09:04 [facility] (Rec: 11/02/23 09:38 [facility] [id number]) Hot Pack/Cold Pack Treatment Hot Pack Location left biceps, elbow, forearm Patient Position Hooklying Patient Tolerance Good Comments liked heat and weight of pack Infrared Treatment Treatment left elbow Body Position Hooklying Continuous/Pulsed Continuous Program or Protocal chronic pain and stiffness Comments 58 sec each of 8 locations distal and prox elbow and biceps muscle belly PT-OP-T Assessment and Plan Start: 10/09/23 16:21 Freq: Status: Active Protocol: Document 11/02/23 09:04 CINDY (Rec: 11/02/23 09:37 [facility] [id number]) Physical Therapy Assessment Goals Four Impairment palpable tightness and hypersensitivity left biceps Short Term Goal (STG) Desensitize left UE to allow for moderate soft tissue mobilization to return musculature to normal tone and promote healing 11/01/23: goal mostly met, good progress STG Duration 11/23/23 Detention Goal (LTG) Normalize muscle tone and eliminate hypersensitivity left UE LTG Duration 01/09/24 Three Impairment pain interrups patient sleep Detention Goal (LTG) Patient able to return to normal sleep pattern without being woken due to sleep 11/01/23: good progress with improved sleep LTG Duration 01/09/24 Two Impairment weakness left UE Short Term Goal (STG) Patient to be instructed in individualized and progressive HEP for purposes of strengthening left UE 11/01/23: goal met STG Duration goal met Detention Goal (LTG) Patient to be independent and compliant with HEP and demonstrate improvement in strength left UE to at least 4 +/5 all muscle groups to allow her to return to prior functional activities including work. LTG Duration 01/09/24 One Impairment activity intolerance Impairment Quickdash UE disability index 45% Short Term Goal (STG) Decrease Quickdash to no greater than 20% 11/01/23: Decreased to 34% STG Duration 11/23/23 Offal Baler Goal (LTG) Decrease Quickdash score to no greater than 10% as measure of improved function and activity tolerance left UE LTG Duration 01/09/24 Progress Towards Goals Progress Towards Goals Progressing Toward Goals Assessment Summary Assessment Improved tolerance for soft tissue mobilization, muscle soreness but not pain after yesterday's session. Continues to progress. Physical Therapy Plan Frequency and Duration Frequency of Treatment 2x/Week Duration of treatment (weeks) 8 Plan of Care Start Date 10/10/23 Plan of Care End Date 01/09/24 Therapeutic Interventions Therapeutic Interventions Home Exercise Program,Manual Therapy,Patient/Caregiver Education,Self-Care/Home Management,Soft Tissue Mobilization,Taping, Therapeutic Activities, Therapeutic Exercises Modalities Cold Pack/Ice Massage,Electric Stimulation,Hot Packs, Infrared Therapy,Iontophoresis ,Ultrasound Next Visit Focus/Plan Next Note Type Treatment Note Next Visit Plan Continue cold laser, KT tape, manual techniques to decrease soft tissue tightness, progress therapeutic exercises including functional tasks of lifting.
--- NOTE | 2023-11-07 10:46 | PT.OTN ---
Current Diagnoses Oumar-Danlos syndrome, unspecified (11/07/23) Syncope and collapse (11/07/23) Strain of muscle, fascia and tendon of other parts of biceps, left arm, subsequent encounter (11/07/23) Strain of unspecified muscle, fascia and tendon at shoulder and upper arm level, left arm, subsequent encounter (11/07/23) Physical Therapy Treatment Note PT-OP-A Visit Information Start: 10/09/23 16:21 Freq: Status: Active Protocol: Document 11/07/23 08:15 SAK (Rec: 11/07/23 09:02 SAK [id number]) Out-Patient Physical Therapy Visit Information Visit Information Visit Type Treatment Note Visit Start Time 09:02 Visit Stop Time 09:59 Visit Number 7 Evaluation Information Evaluation Date 10/10/23 Precautions Precautions Ehler's Danlo PT-OP-B Current Condition Start: 10/09/23 16:21 Freq: Status: Active Protocol: Document 11/07/23 08:15 SAK (Rec: 11/07/23 09:02 SAK [id number]) Current Condition History of Current Condition Onset Date 2 months Current Complaints left UE pain History of Current Condition Onset of pain injury August 09; first time donating plasma. Was pumping her hand during extraction while needle in, patient passed out and reports she was shaking and convulsing, bent her elbow while equipment in her arm, bent arm at least 3x. Had bruising initially, unable to fully extend. 1st month practically unusable. Some improvement but persists. Feels continues to reinjure it . 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 Interrupts sleep. Occasional numbness left hand. Patient is right handed. On feet 8 hrs per day at work, has to lift at least 20 lbs frequently. Otherwise for exercise goes running and hiking; now jogging and walking, fearful of falling and further hurting arm. Bending elbow relieving, extending is stretching pain, tender to touch. Prior Treatments and Tests ultrasound; no clot. Using heat daily and reports hot water feels really good. Future Testing and Treatments Planned Nothing planned further. Potential for being put on light duty. Treatment Goals Patient/Caregiver Goals Decrease pain, regain full active use of her left UE. PT-OP-C Subjective Start: 10/09/23 16:21 Freq: Status: Active Protocol: Document 11/07/23 08:15 SAK (Rec: 11/07/23 09:02 [facility] [id number]) OP-PT Subjective Patient Comments Patient Comments First day of work was yesterday, very tired today. WEnt to doctor, continue PT. 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 PT-OP-F Manual Assessment Start: 10/09/23 16:21 Freq: Status: Active Protocol: Document 10/10/23 08:14 SAK (Rec: 10/10/23 09:37 [facility] [id number]) Manual Assessments Soft Tissue Assessment Soft Tissue Mobility Assessment Increased soft tissue tension biceps, brachialis, brachioradialis. Joint Mobility Assessment Joint Mobility Assessment hypermobility due to Ehler's PT-OP-H Neuro Start: 10/09/23 16:21 Freq: Status: Active Protocol: Document 10/10/23 08:14 SAK (Rec: 10/10/23 09:37 [facility] [id number]) Sensation Evaluation Gross Sensation Gross Sensation Left UE Impaired Sensation Description Paresthesia,Numbness PT-OP-J Posture/Palpation/Skin Start: 10/09/23 16:21 Freq: Status: Active Protocol: Document 10/10/23 08:14 SAK (Rec: 10/10/23 09:37 [facility] [id number]) Palpation Assessment Location left UE Palpation Findings Soft Tissue Tightness,Muscle Guarding Palpation Details no increased warmth or redness PT-OP-K Range of Motion Start: 10/09/23 16:21 Freq: Status: Active Protocol: Document 10/10/23 08:14 SAK (Rec: 10/10/23 09:37 [facility] [id number]) Cervical Spine Range of Motion Cervical Spine Active Comments WFL Shoulder Goniometric Range of Motion Shoulder Left Active Shoulder ROM WFL Yes Comments except IR T10 vs T3 right Right Active Shoulder ROM WFL Yes Shoulder ROM Limitations Shoulder ROM Limitations Soft Tissue Tightness,Pain Elbow/Forearm Range of Motion Elbow/Forearm Left Active Elbow/Forearm ROM WFL Yes Comments flexion pain relieving extension tight pain Right Elbow/Forearm ROM WFL Yes Elbow/Forearm ROM Limitations Elbow/Forearm ROM Limitations Pain Wrist Goniometric Range of Motion Wrist Left Wrist ROM WFL Yes Right Wrist ROM WFL Yes PT-OP-M Strength Start: 10/09/23 16:21 Freq: Status: Active Protocol: Document 10/10/23 08:14 [facility] (Rec: 10/10/23 09:37 [facility] [id number]) Shoulder Strength Shoulder Manual Muscle Testing Left Flexion 4- Good- Extension 4- Good- Abduction (C5) 4- Good- External Rotation 4- Good- Internal Rotation 4- Good- Right Flexion 5 Normal Extension 5 Normal Abduction (C5) 5 Normal Adduction 5 Normal External Rotation 5 Normal Internal Rotation 5 Normal Horizontal Abduction 5 Normal Horizontal Adduction 5 Normal Elbow/Forearm Strength Elbow and Forearm Manual Muscle Testing Left Flexion (C6) 3+ Fair+ Extension (C7) 4- Good- Pronation 3+ Fair+ Supination 3+ Fair+ Comments painful all motions, worst is flexion. Right Flexion (C6) 5 Normal Extension (C7) 5 Normal Wrist Strength Wrist Manual Muscle Testing Left Flexion (C7) 3+ Fair+ Extension (C6) 4 Good Comments painful flexion Right Flexion (C7) 5 Normal Extension (C6) 5 Normal PT-OP-Q Treatments Start: 10/09/23 16:21 Freq: Status: Active Protocol: Document 11/07/23 08:15 [facility] (Rec: 11/07/23 09:02 [facility] [id number]) Cardio Equipment Upper Body Ergometer (UBE) Duration (Minutes) 6 RPM 90 Seat Position 7 Height 2.5 Therapeutic Exercises Sitting Exercises forearm pron/sup Resistance 3# dumbell Reps/Minutes 10x wrist flex Resistance 2# DB Reps/Minutes 10x wrist ext Resistance 3# DB Reps/Minutes 10x generation mechanic helper Sitting Exercise Name HEP Comments orange theraputty Standing Exercises shoulder ext Equipment Used L2 TB Reps/Minutes 10x row Equipment Used L2 TB Reps/Minutes 10x counter stretch Reps/Minutes 2x30 bicep stretch Reps/Minutes 1x30 Comments holding onto bar behind wall push up Reps/Minutes 10x overhead press Standing Exercise Name squat press Resistance 5# Reps/Minutes 10x upright row Resistance 5# Reps/Minutes 10x shld shrug Resistance 5# Reps/Minutes 10x lateral raise Resistance 4# Reps/Minutes 10x bicep curls Resistance 4# Reps/Minutes 10x Manual Therapy Treatment Soft Tissue Mobilization left bicep Mobilization Type Myofascial Release,Strumming, Sustained Pressure,Other Intensity/Depth Moderate Body Position Supine Comments pin and stretch periscap Mobilization Type Myofascial Release,Strumming, Sustained Pressure Intensity/Depth Moderate Body Position Sidelying PT-OP-R Modalities Start: 10/09/23 16:21 Freq: Status: Active Protocol: Document 11/07/23 08:15 [facility] (Rec: 11/07/23 09:02 [facility] [id number]) Hot Pack/Cold Pack Treatment Hot Pack Location left biceps, elbow, forearm Patient Position Hooklying Patient Tolerance Good Infrared Treatment Treatment left elbow Body Position Hooklying Continuous/Pulsed Continuous Program or Protocal chronic pain and stiffness Comments 58 sec each of 8 locations distal and prox elbow and biceps muscle belly PT-OP-T Assessment and Plan Start: 10/09/23 16:21 Freq: Status: Active Protocol: Document 11/07/23 08:15 [facility] (Rec: 11/07/23 09:02 [facility] [id number]) Physical Therapy Assessment Rehab Potential Rehabilitation Potential Good Evaluation Complexity Number of Personal Factors/Comorbidities 1-2 Number of Body Systems Impaired 3 Clinical Presentation at Evaluation Evolving Goals Four Impairment palpable tightness and hypersensitivity left biceps Short Term Goal (STG) Desensitize left UE to allow for moderate soft tissue mobilization to return musculature to normal tone and promote healing 11/01/23: goal mostly met, good progress STG Duration 11/23/23 Commissioning Editor Goal (LTG) Normalize muscle tone and eliminate hypersensitivity left UE LTG Duration 01/09/24 Three Impairment pain interrups patient sleep Snf Goal (LTG) Patient able to return to normal sleep pattern without being woken due to sleep 11/01/23: good progress with improved sleep LTG Duration 01/09/24 Two Impairment weakness left UE Short Term Goal (STG) Patient to be instructed in individualized and progressive HEP for purposes of strengthening left UE 11/01/23: goal met STG Duration goal met Snf Goal (LTG) Patient to be independent and compliant with HEP and demonstrate improvement in strength left UE to at least 4 +/5 all muscle groups to allow her to return to prior functional activities including work. LTG Duration 01/09/24 One Impairment activity intolerance Impairment Quickdash UE disability index 45% Short Term Goal (STG) Decrease Quickdash to no greater than 20% 11/01/23: Decreased to 34% STG Duration 11/23/23 Commissioning Editor Goal (LTG) Decrease Quickdash score to no greater than 10% as measure of improved function and activity tolerance left UE LTG Duration 01/09/24 Progress Towards Goals Progress Towards Goals Progressing Toward Goals Assessment Summary Assessment Continues to improve and make progress toward goals. Hasn't changed weight on exercises yet HEP but able to inc 1# with overhead press, bicep curl, wrist and forearm flex/ ext/prone/sup Having boyfriend massage her arm before bed. Physical Therapy Plan Frequency and Duration Frequency of Treatment 2x/Week Duration of treatment (weeks) 8 Plan of Care Start Date 10/10/23 Plan of Care End Date 01/09/24 Therapeutic Interventions Therapeutic Interventions Home Exercise Program,Manual Therapy,Patient/Caregiver Education,Self-Care/Home Management,Soft Tissue Mobilization,Taping, Therapeutic Activities, Therapeutic Exercises Modalities Cold Pack/Ice Massage,Electric Stimulation,Hot Packs, Infrared Therapy,Iontophoresis ,Ultrasound Next Visit Focus/Plan Next Note Type Treatment Note Next Visit Plan Continue PT per POC to continue to decrease pain and 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
--- NOTE | 2023-11-15 09:03 | PT.OTN ---
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) Syncope and collapse (11/15/23) Strain of muscle, fascia and tendon of other parts of biceps, left arm, subsequent encounter (11/15/23) Strain of unspecified muscle, fascia and tendon at shoulder and upper arm level, left arm, subsequent encounter (11/15/23) Physical Therapy Treatment Note PT-OP-A Visit Information Start: 10/09/23 16:21 Freq: Status: Active Protocol: Document 11/15/23 08:22 SP (Rec: 11/15/23 09:06 SP [id number]) Out-Patient Physical Therapy Visit Information Visit Information Visit Type Treatment Note Visit Note DNS Visit Start Time 08:22 Visit Stop Time 09:03 Visit Number 8 Number of 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 Was pumping her hand during extraction while needle in, patient passed out and reports she was shaking and convulsing, bent her elbow while equipment in her arm, bent arm at least 3x. Had bruising initially, unable to fully extend. 1st month practically unusable. Some improvement but persists. Feels continues to reinjure it . 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 Interrupts sleep. Occasional numbness left hand. Patient is right handed. On feet 8 hrs per day at work, has to lift at least 20 lbs frequently. Otherwise for exercise goes running and hiking; now jogging and walking, fearful of falling and further hurting arm. Bending elbow relieving, extending is stretching pain, tender to touch. Prior Treatments and Tests ultrasound; no clot. Using heat daily and reports hot water feels really good. Future Testing and Treatments Planned Nothing planned further. Potential for being put on light duty. Treatment Goals Patient/Caregiver Goals Decrease pain, regain full active use of her left UE. PT-OP-C Subjective Start: 10/09/23 16:21 Freq: Status: Active Protocol: Document 11/15/23 08:22 SP (Rec: 11/15/23 09:06 SP [id number]) OP-PT Subjective Patient Comments Patient Comments Pt reported shld more sore since return to work. She thinks the stretches and HEP doing well with and helpful seeing some progress but with work added hasn't gone as quick. She reports is trying to incorporate putting weight items in bucket at home to help strengthen carryover heavy items carrying at work and is helping. PT-OP-F Manual Assessment Start: 10/09/23 16:21 Freq: Status: Active Protocol: Document 10/10/23 08:14 SAK (Rec: 10/10/23 09:37 SAK [id number]) Manual Assessments Soft Tissue Assessment Soft Tissue Mobility Assessment Increased soft tissue tension biceps, brachialis, brachioradialis. Joint Mobility Assessment Joint Mobility Assessment hypermobility due to Ehler's PT-OP-H Neuro Start: 10/09/23 16:21 Freq: Status: Active Protocol: Document 10/10/23 08:14 SAK (Rec: 10/10/23 09:37 SAK [id number]) Sensation Evaluation Gross Sensation Gross Sensation Left UE Impaired Sensation Description Paresthesia,Numbness PT-OP-J Posture/Palpation/Skin Start: 10/09/23 16:21 Freq: Status: Active Protocol: Document 10/10/23 08:14 SAK (Rec: 10/10/23 09:37 SAK [id number]) Palpation Assessment Location left UE Palpation Findings Soft Tissue Tightness,Muscle Guarding Palpation Details no increased warmth or redness PT-OP-K Range of Motion Start: 10/09/23 16:21 Freq: Status: Active Protocol: Document 10/10/23 08:14 SAK (Rec: 10/10/23 09:37 SAK [id number]) Cervical Spine Range of Motion Cervical Spine Active Comments WFL Shoulder Goniometric Range of Motion Shoulder Left Active Shoulder ROM WFL Yes Comments except IR T10 vs T3 right Right Active Shoulder ROM WFL Yes Shoulder ROM Limitations Shoulder ROM Limitations Soft Tissue Tightness,Pain Elbow/Forearm Range of Motion Elbow/Forearm Left Active Elbow/Forearm ROM WFL Yes Comments flexion pain relieving extension tight pain Right Elbow/Forearm ROM WFL Yes Elbow/Forearm ROM Limitations Elbow/Forearm ROM Limitations Pain Wrist Goniometric Range of Motion Wrist Left Wrist ROM WFL Yes Right Wrist ROM WFL Yes PT-OP-M Strength Start: 10/09/23 16:21 Freq: Status: Active Protocol: Document 10/10/23 08:14 SAK (Rec: 10/10/23 09:37 SAK [id number]) Shoulder Strength Shoulder Manual Muscle Testing Left Flexion 4- Good- Extension 4- Good- Abduction (C5) 4- Good- External Rotation 4- Good- Internal Rotation 4- Good- Right Flexion 5 Normal Extension 5 Normal Abduction (C5) 5 Normal Adduction 5 Normal External Rotation 5 Normal Internal Rotation 5 Normal Horizontal Abduction 5 Normal Horizontal Adduction 5 Normal Elbow/Forearm Strength Elbow and Forearm Manual Muscle Testing Left Flexion (C6) 3+ Fair+ Extension (C7) 4- Good- Pronation 3+ Fair+ Supination 3+ Fair+ Comments painful all motions, worst is flexion. Right Flexion (C6) 5 Normal Extension (C7) 5 Normal Wrist Strength Wrist Manual Muscle Testing Left Flexion (C7) 3+ Fair+ Extension (C6) 4 Good Comments painful flexion Right Flexion (C7) 5 Normal Extension (C6) 5 Normal PT-OP-Q Treatments Start: 10/09/23 16:21 Freq: Status: Active Protocol: Document 11/15/23 08:22 SP (Rec: 11/15/23 09:06 SP [id number]) Therapeutic Exercises Standing Exercises wrist TB ex Standing Exercise Name Long axis: wrist flex,ext, pron, supin Side left Resistance Tb #2 orange (light blue home) Reps/Minutes x10 each Comments occ cues for elbow soft ext/ arm at side shoulder ext Equipment Used L2>3 koi green TB Reps/Minutes 10x2 Comments cued maintain rhomboid fac con /ecc /c elbow ext overhead press Standing Exercise Name squat press Resistance 5# DB Reps/Minutes 10x Comments good form, pnfree tiring upright row Resistance 5>4# DB Reps/Minutes 10x Comments good form reduction discomfort L shld with lower wt. Manual Therapy Treatment Soft Tissue Mobilization left bicep Body Location bicep and tricep Mobilization Type Myofascial Release,Strumming, Sustained Pressure,Other Intensity/Depth Moderate Body Position Supine Comments pin and stretch & MWM /c elbow flex/ext, pron/supination, wrist flex/ext periscap Body Location L Mobilization Type Myofascial Release,Strumming, Sustained Pressure Intensity/Depth Moderate Body Position Sidelying PT-OP-R Modalities Start: 10/09/23 16:21 Freq: Status: Active Protocol: Document 11/15/23 08:22 SP (Rec: 11/15/23 09:06 SP [id number]) Infrared Treatment Treatment left elbow Body Position Hooklying Continuous/Pulsed Continuous Program or Protocal chronic pain and stiffness Comments 58 sec each of 8 locations distal and prox elbow and biceps muscle belly PT-OP-T Assessment and Plan Start: 10/09/23 16:21 Freq: Status: Active Protocol: Document 11/15/23 08:22 SP (Rec: 11/15/23 09:06 SP [id number]) Physical Therapy Assessment Goals Four Impairment palpable tightness and hypersensitivity left biceps Short Term Goal (STG) Desensitize left UE to allow for moderate soft tissue mobilization to return musculature to normal tone and promote healing 11/01/23: goal mostly met, good progress STG Duration 11/23/23 Retirement Goal (LTG) Normalize muscle tone and eliminate hypersensitivity left UE LTG Duration 01/09/24 Three Impairment pain interrups patient sleep Geospatial Technologist Goal (LTG) Patient able to return to normal sleep pattern without being woken due to sleep 11/01/23: good progress with improved sleep LTG Duration 01/09/24 Two Impairment weakness left UE Short Term Goal (STG) Patient to be instructed in individualized and progressive HEP for purposes of strengthening left UE 11/01/23: goal met STG Duration goal met Retirement Goal (LTG) Patient to be independent and compliant with HEP and demonstrate improvement in strength left UE to at least 4 +/5 all muscle groups to allow her to return to prior functional activities including work. 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 Continued report muscle tiring 5lb DB over head press but upright row last tx needed reduce to 4lb wt with reduction L shld discomfort. Good self application with instruction demo pin stretch and MWM bicep and tricep to reduce tension and elicit relaxing to allow her to do at work when needed. Physical Therapy Plan Frequency and Duration Frequency of Treatment 2x/Week Duration of treatment (weeks) 8 Plan of Care Start Date 10/10/23 Plan of Care End Date 01/09/24 Therapeutic Interventions Therapeutic Interventions Home Exercise Program,Manual Therapy,Patient/Caregiver Education,Self-Care/Home Management,Soft Tissue Mobilization,Taping, Therapeutic Activities, Therapeutic Exercises Modalities Cold Pack/Ice Massage,Electric Stimulation,Hot Packs, Infrared Therapy,Iontophoresis ,Ultrasound Next Visit Focus/Plan Next Note Type Treatment Note Next Visit Plan Next tx: recheck resisted wrist/forearm ther ex standing and MWM/pin stretch self application. 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
--- NOTE | 2023-11-20 10:54 | PT.OTN ---
Current Diagnoses Oumar-Danlos syndrome, unspecified (11/20/23) Syncope and collapse (11/20/23) Strain of muscle, fascia and tendon of other parts of biceps, left arm, subsequent encounter (11/20/23) Strain of unspecified muscle, fascia and tendon at shoulder and upper arm level, left arm, subsequent encounter (11/20/23) Physical Therapy Treatment Note PT-OP-A Visit Information Start: 10/09/23 16:21 Freq: Status: Active Protocol: Document 11/20/23 08:19 SAK (Rec: 11/20/23 09:04 SAK [id number]) Out-Patient Physical Therapy Visit Information Visit Information Visit Type Treatment Note Visit Start Time 08:17 Visit Stop Time 09:07 Visit Number 9 Number of 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 Was pumping her hand during extraction while needle in, patient passed out and reports she was shaking and convulsing, bent her elbow while equipment in her arm, bent arm at least 3x. Had bruising initially, unable to fully extend. 1st month practically unusable. Some improvement but persists. Feels continues to reinjure it . 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 Interrupts sleep. Occasional numbness left hand. Patient is right handed. On feet 8 hrs per day at work, has to lift at least 20 lbs frequently. Otherwise for exercise goes running and hiking; now jogging and walking, fearful of falling and further hurting arm. Bending elbow relieving, extending is stretching pain, tender to touch. Prior Treatments and Tests ultrasound; no clot. Using heat daily and reports hot water feels really good. Future Testing and Treatments Planned Nothing planned further. Potential for being put on light duty. Treatment Goals Patient/Caregiver Goals Decrease pain, regain full active use of her left UE. PT-OP-C Subjective Start: 10/09/23 16:21 Freq: Status: Active Protocol: Document 11/20/23 08:19 SAK (Rec: 11/20/23 09:04 [facility] [id number]) OP-PT Subjective Patient Comments Patient Comments Patient reports overall feels she continues to improve, increased resistance with theraband exercises tolerated ok, doing self massage as instructed during the day. C/ o stiffness in arm more than pain. Feels like doing 85-90% prior work activities, still can't do heavy lifting. PT-OP-F Manual Assessment Start: 10/09/23 16:21 Freq: Status: Active Protocol: Document 10/10/23 08:14 SAK (Rec: 10/10/23 09:37 [facility] [id number]) Manual Assessments Soft Tissue Assessment Soft Tissue Mobility Assessment Increased soft tissue tension biceps, brachialis, brachioradialis. Joint Mobility Assessment Joint Mobility Assessment hypermobility due to Ehler's PT-OP-H Neuro Start: 10/09/23 16:21 Freq: Status: Active Protocol: Document 10/10/23 08:14 SAK (Rec: 10/10/23 09:37 [facility] [id number]) Sensation Evaluation Gross Sensation Gross Sensation Left UE Impaired Sensation Description Paresthesia,Numbness PT-OP-J Posture/Palpation/Skin Start: 10/09/23 16:21 Freq: Status: Active Protocol: Document 10/10/23 08:14 SAK (Rec: 10/10/23 09:37 [facility] [id number]) Palpation Assessment Location left UE Palpation Findings Soft Tissue Tightness,Muscle Guarding Palpation Details no increased warmth or redness PT-OP-K Range of Motion Start: 10/09/23 16:21 Freq: Status: Active Protocol: Document 10/10/23 08:14 SAK (Rec: 10/10/23 09:37 [facility] [id number]) Cervical Spine Range of Motion Cervical Spine Active Comments WFL Shoulder Goniometric Range of Motion Shoulder Left Active Shoulder ROM WFL Yes Comments except IR T10 vs T3 right Right Active Shoulder ROM WFL Yes Shoulder ROM Limitations Shoulder ROM Limitations Soft Tissue Tightness,Pain Elbow/Forearm Range of Motion Elbow/Forearm Left Active Elbow/Forearm ROM WFL Yes Comments flexion pain relieving extension tight pain Right Elbow/Forearm ROM WFL Yes Elbow/Forearm ROM Limitations Elbow/Forearm ROM Limitations Pain Wrist Goniometric Range of Motion Wrist Left Wrist ROM WFL Yes Right Wrist ROM WFL Yes PT-OP-M Strength Start: 10/09/23 16:21 Freq: Status: Active Protocol: Document 10/10/23 08:14 [facility] (Rec: 10/10/23 09:37 [facility] [id number]) Shoulder Strength Shoulder Manual Muscle Testing Left Flexion 4- Good- Extension 4- Good- Abduction (C5) 4- Good- External Rotation 4- Good- Internal Rotation 4- Good- Right Flexion 5 Normal Extension 5 Normal Abduction (C5) 5 Normal Adduction 5 Normal External Rotation 5 Normal Internal Rotation 5 Normal Horizontal Abduction 5 Normal Horizontal Adduction 5 Normal Elbow/Forearm Strength Elbow and Forearm Manual Muscle Testing Left Flexion (C6) 3+ Fair+ Extension (C7) 4- Good- Pronation 3+ Fair+ Supination 3+ Fair+ Comments painful all motions, worst is flexion. Right Flexion (C6) 5 Normal Extension (C7) 5 Normal Wrist Strength Wrist Manual Muscle Testing Left Flexion (C7) 3+ Fair+ Extension (C6) 4 Good Comments painful flexion Right Flexion (C7) 5 Normal Extension (C6) 5 Normal PT-OP-Q Treatments Start: 10/09/23 16:21 Freq: Status: Active Protocol: Document 11/20/23 08:19 [facility] (Rec: 11/20/23 09:04 [facility] [id number]) Cardio Equipment Upper Body Ergometer (UBE) Duration (Minutes) 6 RPM 90 Seat Position 7 Height 2.5 Therapeutic Exercises Sitting Exercises pulleys Equipment Used yellow ball behind t/s Reps/Minutes 10x Comments flexion and scaption Standing Exercises abd to ER Standing Exercise Name short axis 90/90 Resistance 3# Reps/Minutes 10x2 Body blade Standing Exercise Name luis fernando UE's, unil Side bilateral Resistance sm-med body blade Comments fwd/bck, side, 90/90, bicep wrist TB ex Standing Exercise Name Long axis: wrist flex,ext, pron, supin Side left Resistance Tb #2 orange (light blue home) Reps/Minutes x10 each Comments occ cues for elbow soft ext/ arm at side overhead press Standing Exercise Name squat press Resistance 4#, 5# DB Reps/Minutes 10x2 Comments good form, pnfree tiring upright row Resistance 5>4# DB Reps/Minutes 10x Comments good form reduction discomfort L shld with lower wt. Manual Therapy Treatment Soft Tissue Mobilization left bicep Body Location bicep and tricep Mobilization Type Myofascial Release,Strumming, Sustained Pressure,Other Intensity/Depth Moderate Body Position Supine Comments pin and stretch & MWM /c elbow flex/ext, pron/supination, wrist flex/ext periscap Body Location L Mobilization Type Myofascial Release,Strumming, Sustained Pressure Intensity/Depth Moderate Body Position Sidelying PT-OP-R Modalities Start: 10/09/23 16:21 Freq: Status: Active Protocol: Document 11/20/23 08:19 [facility] (Rec: 11/20/23 09:04 [facility] [id number]) Infrared Treatment Treatment left elbow Body Position Hooklying Continuous/Pulsed Continuous Program or Protocal chronic pain and stiffness Comments 58 sec each of 8 locations distal and prox elbow and biceps muscle belly PT-OP-T Assessment and Plan Start: 10/09/23 16:21 Freq: Status: Active Protocol: Document 11/20/23 08:19 [facility] (Rec: 11/20/23 09:04 [facility] [id number]) Physical Therapy Assessment Goals Four Impairment palpable tightness and hypersensitivity left biceps Short Term Goal (STG) Desensitize left UE to allow for moderate soft tissue mobilization to return musculature to normal tone and promote healing 11/01/23: goal mostly met, good progress STG Duration 11/23/23 Resourcing Consultant Goal (LTG) Normalize muscle tone and eliminate hypersensitivity left UE LTG Duration 01/09/24 Three Impairment pain interrups patient sleep Resourcing Consultant Goal (LTG) Patient able to return to normal sleep pattern without being woken due to sleep 11/01/23: good progress with improved sleep LTG Duration 01/09/24 Two Impairment weakness left UE Short Term Goal (STG) Patient to be instructed in individualized and progressive HEP for purposes of strengthening left UE 11/01/23: goal met STG Duration goal met [facility] Goal (LTG) Patient to be independent and compliant with HEP and demonstrate improvement in strength left UE to at least 4 +/5 all muscle groups to allow her to return to prior functional activities including work. LTG Duration 01/09/24 One Impairment activity intolerance Impairment Quickdash UE disability index 45% Short Term Goal (STG) Decrease Quickdash to no greater than 20% 11/01/23: Decreased to 34% STG Duration 11/23/23 Resourcing Consultant Goal (LTG) Decrease Quickdash score to no greater than 10% as measure of improved function and activity tolerance left UE LTG Duration 01/09/24 Assessment Summary Assessment Patient able to demo new styanding TB ex with good performance, cues for scap and core activation. Good tolerance for addition to Body blade ex, first with small, she requested med body blade. Good progress. Katarina 85%-90% of work activities at half time well at this time. Physical Therapy Plan Frequency and Duration Frequency of Treatment 2x/Week Duration of treatment (weeks) 8 Plan of Care Start Date 10/10/23 Plan of Care End Date 01/09/24 Therapeutic Interventions Therapeutic Interventions Home Exercise Program,Manual Therapy,Patient/Caregiver Education,Self-Care/Home Management,Soft Tissue Mobilization,Taping, Therapeutic Activities, Therapeutic Exercises Modalities Cold Pack/Ice Massage,Electric Stimulation,Hot Packs, Infrared Therapy,Iontophoresis ,Ultrasound Next Visit Focus/Plan Next Note Type Treatment Note Next Visit Plan Further body blade and check sh abd with ER ex. Progress as indicated.
--- NOTE | 2023-11-22 08:58 | PT.OTN ---
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) Syncope and collapse (11/22/23) Strain of muscle, fascia and tendon of other parts of biceps, left arm, subsequent encounter (11/22/23) Strain of unspecified muscle, fascia and tendon at shoulder and upper arm level, left arm, subsequent encounter (11/22/23) Physical Therapy Treatment Note PT-OP-A Visit Information Start: 10/09/23 16:21 Freq: Status: Active Protocol: Document 11/22/23 08:20 SP (Rec: 11/22/23 09:05 SP [id number]) Out-Patient Physical Therapy Visit Information Visit Information Visit Type Treatment Note Visit Start Time 08:20 Visit Stop Time 08:58 Visit Number 10 Number of WEB DESIGN INSTRUCTOR Visits 1 Evaluation Information Evaluation Date 10/10/23 Precautions Precautions Ehler's Danlo PT-OP-B Current Condition Start: 10/09/23 16:21 Freq: Status: Active Protocol: Document 11/07/23 08:15 SAK (Rec: 11/07/23 09:02 SAK [id number]) Current Condition History of Current Condition Onset Date 2 months Current Complaints left UE pain History of Current Condition Onset of pain injury August 09; first time donating plasma. Was pumping her hand during extraction while needle in, patient passed out and reports she was shaking and convulsing, bent her elbow while equipment in her arm, bent arm at least 3x. Had bruising initially, unable to fully extend. 1st month practically unusable. Some improvement but persists. Feels continues to reinjure it . 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 Interrupts sleep. Occasional numbness left hand. Patient is right handed. On feet 8 hrs per day at work, has to lift at least 20 lbs frequently. Otherwise for exercise goes running and hiking; now jogging and walking, fearful of falling and further hurting arm. Bending elbow relieving, extending is stretching pain, tender to touch. Prior Treatments and Tests ultrasound; no clot. Using heat daily and reports hot water feels really good. Future Testing and Treatments Planned Nothing planned further. Potential for being put on light duty. Treatment Goals Patient/Caregiver Goals Decrease pain, regain full active use of her left UE. PT-OP-C Subjective Start: 10/09/23 16:21 Freq: Status: Active Protocol: Document 11/22/23 08:20 SP (Rec: 11/22/23 09:05 SP [id number]) OP-PT Subjective Patient Comments Patient Comments Pt reports more consistant with HEP and thinks is helping her with lifting activities has to do at work. Patient Questionnaires Quick Dash- Upper Extremity Quick Dash UE Score 28.33 Quick Dash UE Impairment 20 to 39% Impaired (Score 20- 39) PT-OP-F Manual Assessment Start: 10/09/23 16:21 Freq: Status: Active Protocol: Document 10/10/23 08:14 SAK (Rec: 10/10/23 09:37 SAK [id number]) Manual Assessments Soft Tissue Assessment Soft Tissue Mobility Assessment Increased soft tissue tension biceps, brachialis, brachioradialis. Joint Mobility Assessment Joint Mobility Assessment hypermobility due to Ehler's PT-OP-H Neuro Start: 10/09/23 16:21 Freq: Status: Active Protocol: Document 10/10/23 08:14 SAK (Rec: 10/10/23 09:37 SAK [id number]) Sensation Evaluation Gross Sensation Gross Sensation Left UE Impaired Sensation Description Paresthesia,Numbness PT-OP-J Posture/Palpation/Skin Start: 10/09/23 16:21 Freq: Status: Active Protocol: Document 10/10/23 08:14 SAK (Rec: 10/10/23 09:37 SAK [id number]) Palpation Assessment Location left UE Palpation Findings Soft Tissue Tightness,Muscle Guarding Palpation Details no increased warmth or redness PT-OP-K Range of Motion Start: 10/09/23 16:21 Freq: Status: Active Protocol: Document 10/10/23 08:14 SAK (Rec: 10/10/23 09:37 SAK [id number]) Cervical Spine Range of Motion Cervical Spine Active Comments WFL Shoulder Goniometric Range of Motion Shoulder Left Active Shoulder ROM WFL Yes Comments except IR T10 vs T3 right Right Active Shoulder ROM WFL Yes Shoulder ROM Limitations Shoulder ROM Limitations Soft Tissue Tightness,Pain Elbow/Forearm Range of Motion Elbow/Forearm Left Active Elbow/Forearm ROM WFL Yes Comments flexion pain relieving extension tight pain Right Elbow/Forearm ROM WFL Yes Elbow/Forearm ROM Limitations Elbow/Forearm ROM Limitations Pain Wrist Goniometric Range of Motion Wrist Left Wrist ROM WFL Yes Right Wrist ROM WFL Yes PT-OP-M Strength Start: 10/09/23 16:21 Freq: Status: Active Protocol: Document 10/10/23 08:14 SAK (Rec: 10/10/23 09:37 SAK [id number]) Shoulder Strength Shoulder Manual Muscle Testing Left Flexion 4- Good- Extension 4- Good- Abduction (C5) 4- Good- External Rotation 4- Good- Internal Rotation 4- Good- Right Flexion 5 Normal Extension 5 Normal Abduction (C5) 5 Normal Adduction 5 Normal External Rotation 5 Normal Internal Rotation 5 Normal Horizontal Abduction 5 Normal Horizontal Adduction 5 Normal Elbow/Forearm Strength Elbow and Forearm Manual Muscle Testing Left Flexion (C6) 3+ Fair+ Extension (C7) 4- Good- Pronation 3+ Fair+ Supination 3+ Fair+ Comments painful all motions, worst is flexion. Right Flexion (C6) 5 Normal Extension (C7) 5 Normal Wrist Strength Wrist Manual Muscle Testing Left Flexion (C7) 3+ Fair+ Extension (C6) 4 Good Comments painful flexion Right Flexion (C7) 5 Normal Extension (C6) 5 Normal PT-OP-Q Treatments Start: 10/09/23 16:21 Freq: Status: Active Protocol: Document 11/22/23 08:20 SP (Rec: 11/22/23 09:05 SP [id number]) Cardio Equipment Upper Body Ergometer (UBE) Duration (Minutes) 6 RPM 90 Seat Position 11 (blocks front foot plate/ bar) Height 3.5 Other f/b 1 min alternating Therapeutic Exercises Prone Exercises elbow/knee plank Prone Exercise Name trialed in PT Equipment Used mat Reps/Minutes 20 sec Comments cued PPT neutral, SA press level shld, elbows closer- challenge for core Sidelying Exercises FF, ABD, HABD Sidelying Exercise Name proximal stab strengthening Side left Resistance 3# DB Reps/Minutes 10 reps each direction Comments pnfree, parascap control glide Standing Exercises torch carry Standing Exercise Name trialed in PT for dynamic shld stab Side left Equipment Used 4# DB Reps/Minutes 50 ft x2 laps suitcase carry Standing Exercise Name trialed in PT assimulate work Side right Reps/Minutes 50 ft 2 laps Comments good abd to ER Standing Exercise Name short axis 90/90 Resistance 3# Reps/Minutes 10x2 Comments mirror use form Body blade Standing Exercise Name luis fernando UE's, unil Side bilateral Resistance med body blade Reps/Minutes 30 each direction Comments fwd/bck, side, 90/90 (tires less range), bicep (supinated) wrist TB ex Standing Exercise Name Long axis: wrist flex,ext, pron, supin Side left Resistance Tb #2> #3 (green latex) Reps/Minutes x10 each Comments occ cues for elbow soft ext/ arm at side- slower ecc return wall push up Standing Exercise Name Ws (close chain), Erlinda hand position (open chain) Reps/Minutes 10x PT-OP-R Modalities Start: 10/09/23 16:21 Freq: Status: Active Protocol: Document 11/20/23 08:19 SAK (Rec: 11/20/23 09:04 SAK [id number]) Infrared Treatment Treatment left elbow Body Position Hooklying Continuous/Pulsed Continuous Program or Protocal chronic pain and stiffness Comments 58 sec each of 8 locations distal and prox elbow and biceps muscle belly PT-OP-T Assessment and Plan Start: 10/09/23 16:21 Freq: Status: Active Protocol: Document 11/22/23 08:20 SP (Rec: 11/22/23 09:05 SP [id number]) Physical Therapy Assessment Goals Four Impairment palpable tightness and hypersensitivity left biceps Short Term Goal (STG) Desensitize left UE to allow for moderate soft tissue mobilization to return musculature to normal tone and promote healing 11/01/23: goal mostly met, good progress STG Duration 11/23/23 Food Runner Goal (LTG) Normalize muscle tone and eliminate hypersensitivity left UE LTG Duration 01/09/24 Three Impairment pain interrups patient sleep Detention Goal (LTG) Patient able to return to normal sleep pattern without being woken due to sleep 11/01/23: good progress with improved sleep LTG Duration 01/09/24 Two Impairment weakness left UE Short Term Goal (STG) Patient to be instructed in individualized and progressive HEP for purposes of strengthening left UE 11/01/23: goal met STG Duration goal met Detention Goal (LTG) Patient to be independent and compliant with HEP and demonstrate improvement in strength left UE to at least 4 +/5 all muscle groups to allow her to return to prior functional activities including work. LTG Duration 01/09/24 One Impairment activity intolerance Impairment Quickdash UE disability index 45% Short Term Goal (STG) Decrease Quickdash to no greater than 20% 11/01/23: Decreased to 34% 11/22/23: decreased to score to 28%, 20-39% impairment STG Duration 11/23/23 Progressing 11/22/23 Detention Goal (LTG) Decrease Quickdash score to no greater than 10% as measure of improved function and activity tolerance left UE 11/22/23: decreased to 28%, 28- 39% impairment LTG Duration 01/09/24 progressing 11/22/23 Progress Towards Goals Progress Comments Goal #1: Progressing in Quick Dash UE score from 34 to 28, 20-39% impairement. Assessment Summary Assessment Pt improved scap, GH and elbow (bicep/tricep activiation) for balanced L shld jt during all resisted activities. Mostly tiring muscle quivering /wobble during ther ex increased resistance but no pain. Pt report more activities finds self at work and home. Will incorporate these for scap/shld stab home. Physical Therapy Plan Frequency and Duration Frequency of Treatment 2x/Week Duration of treatment (weeks) 8 Plan of Care Start Date 10/10/23 Plan of Care End Date 01/09/24 Therapeutic Interventions Therapeutic Interventions Home Exercise Program,Manual Therapy,Patient/Caregiver Education,Self-Care/Home Management,Soft Tissue Mobilization,Taping, Therapeutic Activities, Therapeutic Exercises Modalities Cold Pack/Ice Massage,Electric Stimulation,Hot Packs, Infrared Therapy,Iontophoresis ,Ultrasound Next Visit Focus/Plan Next Note Type Treatment Note Next Visit Plan Further body blade and check sh abd with ER ex and carries and sidelying resisted. Progress as indicated.
--- NOTE | 2023-11-22 08:58 | PT.OTN ---
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) Syncope and collapse (11/22/23) Strain of muscle, fascia and tendon of other parts of biceps, left arm, subsequent encounter (11/22/23) Strain of unspecified muscle, fascia and tendon at shoulder and upper arm level, left arm, subsequent encounter (11/22/23) Physical Therapy Treatment Note PT-OP-A Visit Information Start: 10/09/23 16:21 Freq: Status: Active Protocol: Document 11/22/23 08:20 SP (Rec: 11/22/23 09:05 SP [id number]) Out-Patient Physical Therapy Visit Information Visit Information Visit Type Treatment Note Visit Start Time 08:20 Visit Stop Time 08:58 Visit Number 10 Number of CORPORATE COMMUNICATIONS INTERN Visits 1 Evaluation Information Evaluation Date 10/10/23 Precautions Precautions Ehler's Danlo PT-OP-B Current Condition Start: 10/09/23 16:21 Freq: Status: Active Protocol: Document 11/07/23 08:15 SAK (Rec: 11/07/23 09:02 SAK [id number]) Current Condition History of Current Condition Onset Date 2 months Current Complaints left UE pain History of Current Condition Onset of pain injury August 09; first time donating plasma. Was pumping her hand during extraction while needle in, patient passed out and reports she was shaking and convulsing, bent her elbow while equipment in her arm, bent arm at least 3x. Had bruising initially, unable to fully extend. 1st month practically unusable. Some improvement but persists. Feels continues to reinjure it . 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 Interrupts sleep. Occasional numbness left hand. Patient is right handed. On feet 8 hrs per day at work, has to lift at least 20 lbs frequently. Otherwise for exercise goes running and hiking; now jogging and walking, fearful of falling and further hurting arm. Bending elbow relieving, extending is stretching pain, tender to touch. Prior Treatments and Tests ultrasound; no clot. Using heat daily and reports hot water feels really good. Future Testing and Treatments Planned Nothing planned further. Potential for being put on light duty. Treatment Goals Patient/Caregiver Goals Decrease pain, regain full active use of her left UE. PT-OP-C Subjective Start: 10/09/23 16:21 Freq: Status: Active Protocol: Document 11/22/23 08:20 SP (Rec: 11/22/23 09:05 SP [id number]) OP-PT Subjective Patient Comments Patient Comments Pt reports more consistant with HEP and thinks is helping her with lifting activities has to do at work. PT-OP-F Manual Assessment Start: 10/09/23 16:21 Freq: Status: Active Protocol: Document 10/10/23 08:14 SAK (Rec: 10/10/23 09:37 SAK [id number]) Manual Assessments Soft Tissue Assessment Soft Tissue Mobility Assessment Increased soft tissue tension biceps, brachialis, brachioradialis. Joint Mobility Assessment Joint Mobility Assessment hypermobility due to Ehler's PT-OP-H Neuro Start: 10/09/23 16:21 Freq: Status: Active Protocol: Document 10/10/23 08:14 SAK (Rec: 10/10/23 09:37 SAK [id number]) Sensation Evaluation Gross Sensation Gross Sensation Left UE Impaired Sensation Description Paresthesia,Numbness PT-OP-J Posture/Palpation/Skin Start: 10/09/23 16:21 Freq: Status: Active Protocol: Document 10/10/23 08:14 SAK (Rec: 10/10/23 09:37 SAK [id number]) Palpation Assessment Location left UE Palpation Findings Soft Tissue Tightness,Muscle Guarding Palpation Details no increased warmth or redness PT-OP-K Range of Motion Start: 10/09/23 16:21 Freq: Status: Active Protocol: Document 10/10/23 08:14 SAK (Rec: 10/10/23 09:37 SAK [id number]) Cervical Spine Range of Motion Cervical Spine Active Comments WFL Shoulder Goniometric Range of Motion Shoulder Left Active Shoulder ROM WFL Yes Comments except IR T10 vs T3 right Right Active Shoulder ROM WFL Yes Shoulder ROM Limitations Shoulder ROM Limitations Soft Tissue Tightness,Pain Elbow/Forearm Range of Motion Elbow/Forearm Left Active Elbow/Forearm ROM WFL Yes Comments flexion pain relieving extension tight pain Right Elbow/Forearm ROM WFL Yes Elbow/Forearm ROM Limitations Elbow/Forearm ROM Limitations Pain Wrist Goniometric Range of Motion Wrist Left Wrist ROM WFL Yes Right Wrist ROM WFL Yes PT-OP-M Strength Start: 10/09/23 16:21 Freq: Status: Active Protocol: Document 10/10/23 08:14 SAK (Rec: 10/10/23 09:37 SAK [id number]) Shoulder Strength Shoulder Manual Muscle Testing Left Flexion 4- Good- Extension 4- Good- Abduction (C5) 4- Good- External Rotation 4- Good- Internal Rotation 4- Good- Right Flexion 5 Normal Extension 5 Normal Abduction (C5) 5 Normal Adduction 5 Normal External Rotation 5 Normal Internal Rotation 5 Normal Horizontal Abduction 5 Normal Horizontal Adduction 5 Normal Elbow/Forearm Strength Elbow and Forearm Manual Muscle Testing Left Flexion (C6) 3+ Fair+ Extension (C7) 4- Good- Pronation 3+ Fair+ Supination 3+ Fair+ Comments painful all motions, worst is flexion. Right Flexion (C6) 5 Normal Extension (C7) 5 Normal Wrist Strength Wrist Manual Muscle Testing Left Flexion (C7) 3+ Fair+ Extension (C6) 4 Good Comments painful flexion Right Flexion (C7) 5 Normal Extension (C6) 5 Normal PT-OP-Q Treatments Start: 10/09/23 16:21 Freq: Status: Active Protocol: Document 11/22/23 08:20 SP (Rec: 11/22/23 09:05 SP [id number]) Cardio Equipment Upper Body Ergometer (UBE) Duration (Minutes) 6 RPM 90 Seat Position 11 (blocks front foot plate/ bar) Height 3.5 Other f/b 1 min alternating Therapeutic Exercises Prone Exercises elbow/knee plank Prone Exercise Name trialed in PT Equipment Used mat Reps/Minutes 20 sec Comments cued PPT neutral, SA press level shld, elbows closer- challenge for core Sidelying Exercises FF, ABD, HABD Sidelying Exercise Name proximal stab strengthening Side left Resistance 3# DB Reps/Minutes 10 reps each direction Comments pnfree, parascap control glide Standing Exercises torch carry Standing Exercise Name trialed in PT for dynamic shld stab Side left Equipment Used 4# DB Reps/Minutes 50 ft x2 laps suitcase carry Standing Exercise Name trialed in PT assimulate work Side right Reps/Minutes 50 ft 2 laps Comments good abd to ER Standing Exercise Name short axis 90/90 Resistance 3# Reps/Minutes 10x2 Comments mirror use form Body blade Standing Exercise Name luis fernando UE's, unil Side bilateral Resistance med body blade Reps/Minutes 30 each direction Comments fwd/bck, side, 90/90 (tires less range), bicep (supinated) wrist TB ex Standing Exercise Name Long axis: wrist flex,ext, pron, supin Side left Resistance Tb #2> #3 (green latex) Reps/Minutes x10 each Comments occ cues for elbow soft ext/ arm at side- slower ecc return wall push up Standing Exercise Name Ws (close chain), Erlinda hand position (open chain) Reps/Minutes 10x PT-OP-R Modalities Start: 10/09/23 16:21 Freq: Status: Active Protocol: Document 11/20/23 08:19 SAK (Rec: 11/20/23 09:04 SAK [id number]) Infrared Treatment Treatment left elbow Body Position Hooklying Continuous/Pulsed Continuous Program or Protocal chronic pain and stiffness Comments 58 sec each of 8 locations distal and prox elbow and biceps muscle belly PT-OP-T Assessment and Plan Start: 10/09/23 16:21 Freq: Status: Active Protocol: Document 11/22/23 08:20 SP (Rec: 11/22/23 09:05 SP [id number]) Physical Therapy Assessment Goals Four Impairment palpable tightness and hypersensitivity left biceps Short Term Goal (STG) Desensitize left UE to allow for moderate soft tissue mobilization to return musculature to normal tone and promote healing 11/01/23: goal mostly met, good progress STG Duration 11/23/23 Facilities Maintenance Assistant Goal (LTG) Normalize muscle tone and eliminate hypersensitivity left UE LTG Duration 01/09/24 Three Impairment pain interrups patient sleep Assisted Goal (LTG) Patient able to return to normal sleep pattern without being woken due to sleep 11/01/23: good progress with improved sleep LTG Duration 01/09/24 Two Impairment weakness left UE Short Term Goal (STG) Patient to be instructed in individualized and progressive HEP for purposes of strengthening left UE 11/01/23: goal met STG Duration goal met Facilities Maintenance Assistant Goal (LTG) Patient to be independent and compliant with HEP and demonstrate improvement in strength left UE to at least 4 +/5 all muscle groups to allow her to return to prior functional activities including work. LTG Duration 01/09/24 One Impairment activity intolerance Impairment Quickdash UE disability index 45% Short Term Goal (STG) Decrease Quickdash to no greater than 20% 11/01/23: Decreased to 34% STG Duration 11/23/23 Assisted Goal (LTG) Decrease Quickdash score to no greater than 10% as measure of improved function and activity tolerance left UE LTG Duration 01/09/24 Assessment Summary Assessment Pt improved scap, GH and elbow (bicep/tricep activiation) for balanced L shld jt during all resisted activities. Mostly tiring muscle quivering /wobble during ther ex increased resistance but no pain. Pt report more activities finds self at work and home. Will incorporate these for scap/shld stab home. Physical Therapy Plan Frequency and Duration Frequency of Treatment 2x/Week Duration of treatment (weeks) 8 Plan of Care Start Date 10/10/23 Plan of Care End Date 01/09/24 Therapeutic Interventions Therapeutic Interventions Home Exercise Program,Manual Therapy,Patient/Caregiver Education,Self-Care/Home Management,Soft Tissue Mobilization,Taping, Therapeutic Activities, Therapeutic Exercises Modalities Cold Pack/Ice Massage,Electric Stimulation,Hot Packs, Infrared Therapy,Iontophoresis ,Ultrasound Next Visit Focus/Plan Next Note Type Treatment Note Next Visit Plan Further body blade and check sh abd with ER ex and carries and sidelying resisted. Progress as indicated.
--- NOTE | 2023-11-28 08:48 | PT-OP ANOTE ---
patient DNS likely due to insurance confusion
--- NOTE | 2023-11-30 11:49 | PT.OTN ---
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) Syncope and collapse (11/30/23) Strain of muscle, fascia and tendon of other parts of biceps, left arm, subsequent encounter (11/30/23) Strain of unspecified muscle, fascia and tendon at shoulder and upper arm level, left arm, subsequent encounter (11/30/23) Physical Therapy Treatment Note PT-OP-A Visit Information Start: 10/09/23 16:21 Freq: Status: Active Protocol: Document 11/30/23 08:17 SAK (Rec: 11/30/23 09:04 SAK [id number]) Out-Patient Physical Therapy Visit Information Visit Information Visit Type Treatment Note Visit Start Time 08:20 Visit Stop Time 09:15 Visit Number 11 Evaluation Information Evaluation Date 10/10/23 Precautions Precautions Ehler's Danlo PT-OP-B Current Condition Start: 10/09/23 16:21 Freq: Status: Active Protocol: Document 11/30/23 08:17 SAK (Rec: 11/30/23 09:04 SAK [id number]) Current Condition History of Current Condition Onset Date 2 months Current Complaints left UE pain History of Current Condition Onset of pain injury August 09; first time donating plasma. Was pumping her hand during extraction while needle in, patient passed out and reports she was shaking and convulsing, bent her elbow while equipment in her arm, bent arm at least 3x. Had bruising initially, unable to fully extend. 1st month practically unusable. Some improvement but persists. Feels continues to reinjure it . 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 Interrupts sleep. Occasional numbness left hand. Patient is right handed. On feet 8 hrs per day at work, has to lift at least 20 lbs frequently. Otherwise for exercise goes running and hiking; now jogging and walking, fearful of falling and further hurting arm. Bending elbow relieving, extending is stretching pain, tender to touch. Prior Treatments and Tests ultrasound; no clot. Using heat daily and reports hot water feels really good. Future Testing and Treatments Planned Nothing planned further. Potential for being put on light duty. PT-OP-C Subjective Start: 10/09/23 16:21 Freq: Status: Active Protocol: Document 11/30/23 08:17 SAK (Rec: 11/30/23 09:04 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 PT-OP-F Manual Assessment Start: 10/09/23 16:21 Freq: Status: Active Protocol: Document 10/10/23 08:14 SAK (Rec: 10/10/23 09:37 [facility] [id number]) Manual Assessments Soft Tissue Assessment Soft Tissue Mobility Assessment Increased soft tissue tension biceps, brachialis, brachioradialis. Joint Mobility Assessment Joint Mobility Assessment hypermobility due to Ehler's PT-OP-H Neuro Start: 10/09/23 16:21 Freq: Status: Active Protocol: Document 10/10/23 08:14 SAK (Rec: 10/10/23 09:37 [facility] [id number]) Sensation Evaluation Gross Sensation Gross Sensation Left UE Impaired Sensation Description Paresthesia,Numbness PT-OP-J Posture/Palpation/Skin Start: 10/09/23 16:21 Freq: Status: Active Protocol: Document 10/10/23 08:14 SAK (Rec: 10/10/23 09:37 [facility] [id number]) Palpation Assessment Location left UE Palpation Findings Soft Tissue Tightness,Muscle Guarding Palpation Details no increased warmth or redness PT-OP-K Range of Motion Start: 10/09/23 16:21 Freq: Status: Active Protocol: Document 10/10/23 08:14 SAK (Rec: 10/10/23 09:37 [facility] [id number]) Cervical Spine Range of Motion Cervical Spine Active Comments WFL Shoulder Goniometric Range of Motion Shoulder Left Active Shoulder ROM WFL Yes Comments except IR T10 vs T3 right Right Active Shoulder ROM WFL Yes Shoulder ROM Limitations Shoulder ROM Limitations Soft Tissue Tightness,Pain Elbow/Forearm Range of Motion Elbow/Forearm Left Active Elbow/Forearm ROM WFL Yes Comments flexion pain relieving extension tight pain Right Elbow/Forearm ROM WFL Yes Elbow/Forearm ROM Limitations Elbow/Forearm ROM Limitations Pain Wrist Goniometric Range of Motion Wrist Left Wrist ROM WFL Yes Right Wrist ROM WFL Yes PT-OP-M Strength Start: 10/09/23 16:21 Freq: Status: Active Protocol: Document 10/10/23 08:14 SAK (Rec: 10/10/23 09:37 [facility] [id number]) Shoulder Strength Shoulder Manual Muscle Testing Left Flexion 4- Good- Extension 4- Good- Abduction (C5) 4- Good- External Rotation 4- Good- Internal Rotation 4- Good- Right Flexion 5 Normal Extension 5 Normal Abduction (C5) 5 Normal Adduction 5 Normal External Rotation 5 Normal Internal Rotation 5 Normal Horizontal Abduction 5 Normal Horizontal Adduction 5 Normal Elbow/Forearm Strength Elbow and Forearm Manual Muscle Testing Left Flexion (C6) 3+ Fair+ Extension (C7) 4- Good- Pronation 3+ Fair+ Supination 3+ Fair+ Comments painful all motions, worst is flexion. Right Flexion (C6) 5 Normal Extension (C7) 5 Normal Wrist Strength Wrist Manual Muscle Testing Left Flexion (C7) 3+ Fair+ Extension (C6) 4 Good Comments painful flexion Right Flexion (C7) 5 Normal Extension (C6) 5 Normal PT-OP-Q Treatments Start: 10/09/23 16:21 Freq: Status: Active Protocol: Document 11/30/23 08:17 [facility] (Rec: 11/30/23 09:04 [facility] [id number]) Therapeutic Exercises Standing Exercises torch carry Standing Exercise Name trialed in PT for dynamic shld stab Side left Equipment Used 4# DB Reps/Minutes 50 ft x2 laps suitcase carry Standing Exercise Name trialed in PT assimulate work Side left Equipment Used 10 lbs in bucket Reps/Minutes 50 ft 2 laps Comments good abd to ER Standing Exercise Name short axis 90/90 Resistance 3# Reps/Minutes 10x2 Comments mirror use form PT-OP-R Modalities Start: 10/09/23 16:21 Freq: Status: Active Protocol: Document 11/20/23 08:19 [facility] (Rec: 11/20/23 09:04 [facility] [id number]) Infrared Treatment Treatment left elbow Body Position Hooklying Continuous/Pulsed Continuous Program or Protocal chronic pain and stiffness Comments 58 sec each of 8 locations distal and prox elbow and biceps muscle belly PT-OP-T Assessment and Plan Start: 10/09/23 16:21 Freq: Status: Active Protocol: Document 11/30/23 08:17 [facility] (Rec: 11/30/23 09:04 [facility] [id number]) Physical Therapy Assessment Goals Four Impairment palpable tightness and hypersensitivity left biceps Short Term Goal (STG) Desensitize left UE to allow for moderate soft tissue mobilization to return musculature to normal tone and promote healing 11/01/23: goal mostly met, good progress STG Duration 11/23/23 Extractor Loader And Unloader Goal (LTG) Normalize muscle tone and eliminate hypersensitivity left UE LTG Duration goal mostly met Three Impairment pain interrups patient sleep Extractor Loader And Unloader Goal (LTG) Patient able to return to normal sleep pattern without being woken due to sleep 11/01/23: good progress with improved sleep LTG Duration goal met Two Impairment weakness left UE Short Term Goal (STG) Patient to be instructed in individualized and progressive HEP for purposes of strengthening left UE 11/01/23: goal met STG Duration goal met Longterm Goal (LTG) Patient to be independent and compliant with HEP and demonstrate improvement in strength left UE to at least 4 +/5 all muscle groups to allow her to return to prior functional activities including work. LTG Duration goal met One Impairment activity intolerance Impairment Quickdash UE disability index 45% Short Term Goal (STG) Decrease Quickdash to no greater than 20% 11/01/23: Decreased to 34% 11/22/23: decreased to score to 28%, 20-39% impairment STG Duration goal met Longterm Goal (LTG) Decrease Quickdash score to no greater than 10% as measure of improved function and activity tolerance left UE 11/22/23: decreased to 28%, 28- 39% impairment LTG Duration goal progress, should continue to improve with self care as instructed Progress Towards Goals Progress Towards Goals Progressing Toward Goals,Goals Met Assessment Summary Assessment PT goals met, still some tenderness bicep but patient indep with HEP, pin and stretch and massage techniques , 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 Very compliant to HEP. should continue to progress with self care as instructed. Physical Therapy Plan Frequency and Duration Frequency of Treatment 2x/Week Duration of treatment (weeks) 8 Plan of Care Start Date 10/10/23 Plan of Care End Date 01/09/24 Therapeutic Interventions Therapeutic Interventions Home Exercise Program,Manual Therapy,Patient/Caregiver Education,Self-Care/Home Management,Soft Tissue Mobilization,Taping, Therapeutic Activities, Therapeutic Exercises Modalities Cold Pack/Ice Massage,Electric Stimulation,Hot Packs, Infrared Therapy,Iontophoresis ,Ultrasound Discharge Physical Therapy Discharge Reasons Goals Met Discharge Comments Patient independent and compliant with HEP
== END 2023-12-04 13:55 | disposition home or self-care (01) ==
LOC: PHYS 08:15
PROVIDERS: Family Provider Family Medicine; PCP Family Medicine; Referring Provider Family Medicine; Visit Provider Family Medicine
DX: S46.912D Strain of unspecified muscle, fascia and tendon at shoulder and upper arm level, left arm, subsequent encounter (principal); R55 Syncope and collapse; Q79.60 Ehlers-Danlos syndrome, unspecified; S46.212D Strain of muscle, fascia and tendon of other parts of biceps, left arm, subsequent encounter
CPT/HCPCS: 97026; 97110; 97140; 97162; 97535

== ENCOUNTER → 2024-08-25 13:43 | Outpatient (CLI) | payer OTHER, SELFPAY ==
[2024-08-25 14:40] LABS: Influenza A - CEPHEID Flu A POSITIVE (NEGATIVE); Influenza B - CEPHEID Flu B NEGATIVE (NEGATIVE); Respiratory Syncytial Virus Negative (Negative)
[2024-08-25 14:42] LABS: COVID-19 CEPHEID 4-PLEX PCR Negative (Negative)
== END ==
PROVIDERS: Family Provider Family Medicine; PCP Family Medicine; Visit Provider Physician Assistant Surgical
DX: R52 Pain, unspecified (principal); R05.9 Cough, unspecified; R68.83 Chills (without fever); R19.7 Diarrhea, unspecified; R51.9 Headache, unspecified
CPT/HCPCS: 0241U

== ENCOUNTER 2024-09-17 20:13 | Emergency (ER) | payer OTHER, SELFPAY ==
[2024-09-17 20:15] VITALS: BP 129/83; PULSE 69; RESP 18; TEMP 36.9; O2SAT 100; BMI 23.8
--- NOTE | 2024-09-17 23:18 | ED.EXTPRO ---
HPI - Extremity Problem General Chief complaint: Extremity Problem,Nontraumatic Stated complaint: left arm px Time Seen by Provider: 09/17/24 23:18 Source: patient Mode of arrival: Ambulatory History of Present Illness HPI Narrative: 24-year-old female with past medical history of Oumar Danlos, comes into the ED from home for evaluation of left arm pain. She states that the pain started last Monday when she was cleaning a grill. States that the pain is to her elbow radiates to her lower arm, patient states that she has not taken any medications for this. States she does have a history of injury to the arm a year ago was told she had damage to that area and states that she was not able to ?properly use it for months and had to go through PT but is now better. She denies any new trauma or falls denies any other symptoms such as headache visual disturbances chest pain shortness breath fever chills nausea vomiting abdominal pain or any other GI/ symptoms at this time. Related Data Previous Rx's Medication Instructions Recorded drospirenone 3 mg-ethinyl 1 tab PO DAILY #84 tabs 02/06/24 estradiol 0.02 mg tablet (VINCENT (28)) benzonatate 200 mg capsule 200 mg PO BID PRN cough #30 caps 08/25/24 ipratropium bromide 21 mcg (0.03 2 spray intranasal BID PRN nasal 08/25/24 %) nasal spray congestion #30 mL Allergies Allergy/AdvReac Type Severity Reaction Status Date / Time lactose AdvReac Mild Constipatio Verified 08/25/24 13:12 n Review of Systems Review of Systems Narrative: General: Denies fever, chills, weight loss HEENT: Denies headache, eye drainage, eye irritation, head trauma, sore throat, voice change Cardiovascular: Denies any chest pain, palpitations, tachycardia Respiratory: Denies any shortness of breath, cough, wheeze, stridor GI/: Denies any abdominal pain, nausea, vomiting, diarrhea, bright red blood per rectum, melanotic stools, urinary frequency, urinary retention, dysuria, hematuria MSK: Positive left arm pain Skin: Denies any rashes, lesions, discoloration Neuro: Denies any headache, lightheadedness, dizziness, fainting, weakness Psych: Denies SI/HI Patient History Medical History Preventative health care Ankle edema, bilateral Left shoulder strain Other injury of muscle, fascia and tendon of other parts of biceps, left arm, subsequent encounter Strain of left biceps Syncope EDS (Oumar-Danlos syndrome) Social History Smoking Status: Never smoker alcohol intake: never substance use type: marijuana Smoking Status: Never smoker alcohol intake frequency: a few times a month Exam Narrative Exam Narrative: General: Cooperative, comfortable, well-developed, not in acute distress HEENT: Normocephalic, atraumatic, PERRLA, normal sclera, eyelids normal, Neck: Active full range of motion, atraumatic Chest: Normal to inspection, negative crepitus, no overlying erythema ecchymosis Respiratory: Normal respiratory effort, not in acute respiratory distress, clear to auscultation bilaterally negative cough, wheeze, tachypnea, rhonchi, rales Cardiology: Regular rate rhythm negative gallop, murmur, rubs GI/: Normal to inspection, soft, nonrigid, no tenderness to palpation, exam deferred MSK: Patient left upper extremity neurovascularly intact there is no swelling erythema ecchymosis, does have some pain with extension with passive and active motion however no crepitus no actual tenderness to palpation of any bony prominences Skin: No rashes lesions noted Neuro: Alert awake oriented x3, moves all 4 extremities spontaneously, cranial nerves intact, able to answer all questions appropriately follows commands appropriately Psych: Cooperative, negative suicidal or homicidal ideations Initial Vital Signs Initial Vital Signs: Vital Signs Temperature 98.5 F 09/17/24 20:15 Pulse Rate 69 09/17/24 20:15 Respiratory Rate 18 09/17/24 20:15 Blood Pressure 129/83 09/17/24 20:15 Pulse Oximetry 100 09/17/24 20:15 Oxygen Delivery Method Room Air 09/17/24 20:15 Course Orders Ordered: ED Orders 09/17/24 23:28 periph venous up extrem lt Stat Discontinued Medications Acetaminophen (Acetaminophen 325 Mg Tablet) 650 mg PO NOW ONE Stop: 09/17/24 23:29 Last Admin: 09/17/24 23:36 Dose: 650 mg Documented By: Prednisone (Prednisone 20 Mg Tablet) 20 mg PO NOW ONE Stop: 09/17/24 23:29 Last Admin: 09/17/24 23:54 Dose: Not Given Documented By: MR Vital Signs Vital signs: Vital Signs - 8 hr 09/17/24 20:15 Temperature 98.5 F Pulse Rate 69 Respiratory Rate 18 Blood Pressure 129/83 Pulse Oximetry 100 Oxygen Delivery Method Room Air MDM - Extremity (Nontraumatic) Differential Diagnosis Differential diagnosis: Likely superficial thrombophlebitis and deep venous thrombosis of upper extremity Imaging Data US - DVT: Radiologist's Impression: [address] [address] Ultrasound Report Signed Patient: Marlin Bowden MR#: [id number] : 2000 Acct:[id number] Age/Sex: 24 / F Date of Service: 09/17/24 Loc: ED Accession Number: [id number] Procedure: US perip venous up extrem lt Ordering Provider: Fabricio Hayward D.O. PROCEDURE: US PERIPH VENOUS UP EXTREM LT INDICATIONS: pain TECHNIQUE: Real-time imaging, as well as color and pulse Doppler interrogation, was performed of the upper extremity deep veins from the inferior neck to the antecubital fossa. COMPARISON: [facility], PERIP VENOUS UP EXTREM LT, 08/10/2023, 9:38. FINDINGS: The internal jugular vein, visualized portions of the subclavian vein, axillary, and brachial veins are free of intraluminal thrombus. Where physically possible, the veins are normally compressible. Color and pulse Doppler demonstrate normal intraluminal flow, with expected phasicity and pulsatility. Additional scanning of the cephalic and basilic veins of the superficial system demonstrates normal compressibility, without thrombus. IMPRESSION: No findings of upper extremity deep venous thrombosis can be seen. [facility] Narrative Medical decision making narrative: 24-year-old female with past medical history of Oumar Danlos comes into the ED from home for left upper extremity pain. She states that she did strain her arm cleaning a grill on Monday but has had persistent pain she is worried she has a blood clot given the fact that she takes control but no history of blood clots. On exam patient with mild pain with extension of the whole arm but no overlying erythema ecchymosis tenderness to palpation of any bony prominences, neurovascularly intact, ultrasound negative for DVT patient will be sent home with symptomatic relief instructed follow up with the primary care and orthopedic surgery she verbalized understanding of this and agrees to being discharged home with outpatient follow up. Patient will be sent home in sling for comfort Discharge Plan Departure Patient Disposition: Home Clinical Impression: Arm pain, left Instructions: How to Use a Sling Activity Restrictions/Additional Instructions: Please follow up with primary care Please read the discharge instructions sheet carefully and bring all papers to all doctor follow-up visits, as it may contain information that your doctor may want to see. Disease processes change and evolve, if your symptoms worsen or if you develop any new symptoms that are concerning to you please return for evaluation. Your evaluation today does not show any evidence of any life-threatening/serious illnesses requiring admission to the hospital or surgery. Please follow-up with your doctor for re-evaluation in approximately 1 day. Seek immediate medical attention for any worrisome symptoms. *If you do not have a primary care provider please contact the [facility] Resource line at [phone]. They will ask some questions about your medical history and help get you set up with a doctor in the community. Prescriptions: No Action benzonatate 200 mg capsule 200 mg PO BID PRN (Reason: cough) Qty: 30 0RF ipratropium bromide 21 mcg (0.03 %) spray,non-aerosol 2 spray intranasal BID PRN (Reason: nasal congestion) Qty: 30 0RF Rx Instructions: administer into each nostril drospirenone-ethinyl estradiol [VINCENT (28)] 3-0.02 mg tablet 1 tab PO DAILY Qty: 84 6RF Referrals: Chirag Gupta, [Primary Care Provider] - Stand Alone Forms: Patient Portal/API/Survey, Work Release Note
--- NOTE | 2024-09-17 23:28 | DI.US.S_ITS ---
PROCEDURE: US [facility] VENOUS UP EXTREM LT INDICATIONS: pain TECHNIQUE: Real-time imaging, as well as color and pulse Doppler interrogation, was performed of the upper extremity deep veins from the inferior neck to the antecubital fossa. COMPARISON: [facility], , [facility] VENOUS UP EXTREM LT, 08/10/2023, 9:38. FINDINGS: The internal jugular vein, visualized portions of the subclavian vein, axillary, and brachial veins are free of intraluminal thrombus. Where physically possible, the veins are normally compressible. Color and pulse Doppler demonstrate normal intraluminal flow, with expected phasicity and pulsatility. Additional scanning of the cephalic and basilic veins of the superficial system demonstrates normal compressibility, without thrombus. IMPRESSION: No findings of upper extremity deep venous thrombosis can be seen. Approved by: Fely Saucedo M.D.,Ph.D. on 09/18/2024 at 0:51
[2024-09-17] MEDS: ACETAMINOPHEN 325 MG TABLET 650 MG PO (23:36)
[2024-09-18 01:09] VITALS: BP 99/68; PULSE 67; RESP 16; O2SAT 100
== END 2024-09-18 01:19 | disposition home or self-care (01) ==
PROVIDERS: Emergency Provider Student in an Organized Health Care Education/Training Program; Family Provider Family Medicine; PCP Family Medicine
DX: M79.602 Pain in left arm (principal)
CPT/HCPCS: 93971; 99283

== ENCOUNTER → 2025-05-12 09:36 | Outpatient (CLI) | payer OTHER, SELFPAY ==
[2025-05-12 11:20] LABS: Cortisol AM (Before 10AM) 14.8 ug/dL (4.46-22.7)
== END ==
PROVIDERS: PCP Student in an Organized Health Care Education/Training Program; Referring Provider Student in an Organized Health Care Education/Training Program; Visit Provider Student in an Organized Health Care Education/Training Program
DX: R42 Dizziness and giddiness (principal)
CPT/HCPCS: 36415; 82533